=== PATIENT | male | born 1935 | race Caucasian/White ===

== ENCOUNTER 2017-04-28 18:28 | Inpatient (IN) | payer OTHER, MEDICARE ==
[~2017-04-28] VITALS: Ht 172.7 cm; Wt 72.5 kg
[~2017-04-28 18:28] MED LIST: ASPI81 CHEW; CLOP75 PO; GLUCTAB PO; GLYB1TAB51 PO; LISI-360 PO; METO25 PO; PRAV40 PO
[2017-04-28 18:49] VITALS: BP 192/80; PULSE 81; RESP 17
[2017-04-28] MEDS ORDERED: LISI-519 PO (19:06)
[2017-04-28] MEDS ORDERED: METF1000 PO (19:06)
[2017-04-28] MEDS ORDERED: PRAV40TA2 PO (19:06)
[2017-04-28] MEDS ORDERED: ASPI-516 CHEW (19:06)
[2017-04-28] MEDS ORDERED: METO25TA3 PO (19:06)
[2017-04-28] MEDS ORDERED: GLYB5TAB3 PO (19:06)
[2017-04-28] MEDS ORDERED: ONDANSETRON HCL 4 MG/2 ML VIAL IVP ONE (19:15)
[2017-04-28] MEDS ORDERED: MORPHINE SULFATE 4 MG/ML INJ IV PUSH ONE (19:15)
[2017-04-28] MEDS ORDERED: SODIUM CHLORIDE 0.9% FLUSH 10 ML FLUSH IVF PRN (19:15)
--- NOTE | 2017-04-28 19:45 | PD ---
HPI Chief Complaint: Fall Time Seen by Provider: 19:01 Travel History International Travel<30 days: No Contact w/Intl Traveler<30days: No Traveled to known affect area: No History of Present Illness HPI 81-year-old male arrives by EMS. He fell approximately 4 feet from a ladder. Positive LOC. Pain in the right forehead and temporal fossa reported as well as in the region of the right femur. He believes a friend fell on top of him. Pain is reported to be 10/10. Onset sudden. No chest pain or shortness of breath. Patient believes his tetanus is up-to-date. Patient landed on the concrete. Right side of the body struck the ground first. PFSH Past Medical History Arthritis: Yes Asthma: No Anxiety: No Depression: No Heart Rhythm Problems: No Cancer: Yes (colon, prostate) Cardiovascular Problems: Yes High Cholesterol: Yes Chemotherapy: No Chest Pain: No Congestive Heart Failure: No COPD: No Cerebrovascular Accident: No Diabetes: Yes Patient Takes Glucophage: Yes Diminished Hearing: No Endocrine: Yes GERD: No Genitourinary: No Hiatal Hernia: No Hypertension: Yes Immune Disorder: No Kidney Stones: No Musculoskeletal: No Neurologic: No Psychiatric: No Reproductive: No Respiratory: No Immunizations Current: Yes Migraines: No Radiation Therapy: Yes Renal Failure: No Seizures: No Sickle Cell Disease: No Sleep Apnea: No Thyroid Disease: No Ulcer: No Tetanus Vaccination: Unknown ?: Not Past Surgical History Abdominal Surgery: Yes (cholecystectomy , colectomy) AICD: No Arteriovenous Shunt: No Cardiac Surgery: No Cholecystectomy: Yes Ear Surgery: No Endocrine Surgery: No Eye Surgery: No Genitourinary Surgery: No Gynecologic Surgery: No Insulin Pump: No Joint Replacement: No Oral Surgery: No Pacemaker: No Thoracic Surgery: No Other Surgery: Yes (colectomy, cholecysectomy, ) Family History Family Myocardial Infarction: Yes (MOTHER) Social History Alcohol Use: Yes (OCC) Tobacco Use: No Substance Use: No Allergies-Medications (Allergen,Severity, Reaction): Coded Allergies: amlodipine (Unverified Allergy, Intermediate, Cramping, 04/28/17) atorvastatin (Unverified Allergy, Intermediate, Cramping, 04/28/17) pravastatin (Unverified Allergy, Intermediate, Cramping, 04/28/17) simvastatin (Unverified Allergy, Intermediate, Cramping, 04/28/17) Reported Meds & Prescriptions Reported Meds & Active Scripts Active Reported Aspirin 81 Mg Chew 81 Mg CHEW DAILY Pravastatin 40 Mg Tab 40 Mg PO DAILY Metoprolol Tartrate 25 Mg Tab 25 Mg PO BID Lisinopril 5 Mg Tab 5 Mg PO DAILY Glyburide 5 Mg Tab 10 Mg PO BID Take with meals at the same time each day Metformin (Metformin HCl) 1,000 Mg Tab 1,000 Mg PO BIDPC Review of Systems Except as stated in HPI: all other systems reviewed are Neg General / Constitutional: No: Fever Physical Exam Narrative GENERAL: 81-year-old male well-nourished well-developed mild to moderate distress Vital Signs Date Time Temp Pulse Resp B/P (MAP) Pulse Ox O2 Delivery O2 Flow Rate FiO2 04/28/17 18:49 81 17 192/80 (117) SKIN: Warm and dry. HEAD: Atraumatic. Normocephalic. Along the right forehead there is a puncture wound abrasion approximately 1 cm long by 2 cm wide with some abraded skin extending further laterally. EYES: Pupils equal and round. No scleral icterus. No injection or drainage. ENT: No nasal bleeding or discharge. Mucous membranes pink and moist. NECK: Trachea midline. No JVD. CARDIOVASCULAR: Regular rate and rhythm. RESPIRATORY: No accessory muscle use. Clear to auscultation. Breath sounds equal bilaterally. GASTROINTESTINAL: Abdomen soft, non-tender, nondistended. Hepatic and splenic margins not palpable. MUSCULOSKELETAL: Extremities without clubbing, cyanosis, or edema. No obvious deformities. Tenderness to palpation overlying the midshaft femur. NEUROLOGICAL: Awake and alert. No obvious cranial nerve deficits. Motor grossly within normal limits. Five out of 5 muscle strength in the arms and legs. Normal speech. PSYCHIATRIC: Appropriate mood and affect; insight and judgment normal. Data Data Last Documented VS Vital Signs Date Time Temp Pulse Resp B/P (MAP) Pulse Ox O2 Delivery O2 Flow Rate FiO2 04/28/17 19:55 98.0 86 16 164/76 (105) 99 Room Air Orders Orders Electrocardiogram (04/28/17 19:14) Complete Blood Count With Diff (04/28/17 19:14) Comprehensive Metabolic Panel (04/28/17 19:14) Femur (Ap & Lat/2vws) (04/28/17 19:14) Iv Access Insert/Monitor (04/28/17 19:14) Oximetry (04/28/17 19:14) Ecg Monitoring (04/28/17 19:14) Morphine Inj (Morphine Inj) (04/28/17 19:15) Ondansetron Inj (Zofran Inj) (04/28/17 19:15) Sodium Chloride 0.9% Flush (Ns Flush) (04/28/17 19:15) Ct Brain W/O Iv Contrast(Rout) (04/28/17 19:14) Pelvis, Ap Only (Routine) (04/28/17 19:14) Lidocaine 2% Inj (Xylocaine 2% Inj) (04/28/17 20:15) Admit Order (Ed Use Only) (04/28/17 ) Vital Signs (Adult) Q4H (04/28/17 21:13) Activity Bed Rest (04/28/17 21:13) Labs Laboratory Tests Test 04/28/17 19:30 White Blood Count 8.9 TH/MM3 Red Blood Count 3.79 MIL/MM3 Hemoglobin 12.1 GM/DL Hematocrit 36.3 % Mean Corpuscular Volume 95.9 FL Mean Corpuscular Hemoglobin 32.1 PG Mean Corpuscular Hemoglobin Concent 33.5 % Red Cell Distribution Width 12.8 % Platelet Count 184 TH/MM3 Mean Platelet Volume 9.6 FL Neutrophils (%) (Auto) 75.0 % Lymphocytes (%) (Auto) 14.1 % Monocytes (%) (Auto) 6.8 % Eosinophils (%) (Auto) 3.7 % Basophils (%) (Auto) 0.4 % Neutrophils # (Auto) 6.6 TH/MM3 Lymphocytes # (Auto) 1.2 TH/MM3 Monocytes # (Auto) 0.6 TH/MM3 Eosinophils # (Auto) 0.3 TH/MM3 Basophils # (Auto) 0.0 TH/MM3 CBC Comment DIFF FINAL Differential Comment Blood Urea Nitrogen 34 MG/DL Creatinine 1.52 MG/DL Random Glucose 98 MG/DL Total Protein 7.3 GM/DL Albumin 4.0 GM/DL Calcium Level 8.7 MG/DL Alkaline Phosphatase 95 U/L Aspartate Amino Transf (AST/SGOT) 31 U/L Alanine Aminotransferase (ALT/SGPT) 43 U/L Total Bilirubin 0.2 MG/DL Sodium Level 138 MEQ/L Potassium Level 4.8 MEQ/L Chloride Level 105 MEQ/L Carbon Dioxide Level 25.5 MEQ/L Anion Gap 8 MEQ/L Estimat Glomerular Filtration Rate 44 ML/MIN MDM Medical Decision Making Medical Screen Exam Complete: Yes Emergency Medical Condition: Yes Medical Record Reviewed: Yes Differential Diagnosis Intracranial hemorrhage, laceration, pelvis fracture, femur fracture Narrative Course CBC & BMP Diagram 04/28/17 19:30 Total Protein 7.3, Albumin 4.0, Calcium Level 8.7, Alkaline Phosphatase 95, Aspartate Amino Transf (AST/SGOT) 31, Alanine Aminotransferase (ALT/SGPT) 43, Total Bilirubin 0.2 Laceration repaired by mid-level provider The patient is subcapital femoral neck fracture and will be admitted for operative repair. Discussed with Dr Mallory D/w Dr Phan who requests NPO p MN Diagnosis Primary Impression: Hip fracture Qualified Codes: S72.001A - Fracture of unspecified part of neck of right femur, initial encounter for closed fracture Additional Impressions: Fall Qualified Codes: W19.XXXA - Unspecified fall, initial encounter Laceration of scalp Qualified Codes: S01.01XA - Laceration without foreign body of scalp, initial encounter Admitting Information Admitting Physician Requests: Admit Hunter Rdz MD Apr 28, 2017 19:44
[2017-04-28 19:55] VITALS: BP 164/76; PULSE 86; RESP 16; TEMP 98; O2SAT 99
--- NOTE | 2017-04-28 20:07 | RADRPT ---
EXAM DATE/TIME: 04/28/2017 19:29 [facility] COMPARISON: FEMUR RIGHT (AP & LAT/2VWS), April 28, 2017, 19:30. INDICATIONS : Right hip pain. Patient fell off a ladder, approximately 2 feet. MEDICAL HISTORY : None. SURGICAL HISTORY : None. ENCOUNTER: Initial ACUITY: 1 day PAIN SCORE: 8/10 LOCATION: Right hip. FINDINGS: A single frontal view of the pelvis demonstrates no evidence of fracture. The bony pelvic ring is in tact. Bony mineralization is normal. The soft tissues are intact. CONCLUSION: Intact pelvis. Right femur x-ray to follow. Alec Mazariegos MD on April 28, 2017 at 20:05 Board Certified Radiologist. This report was verified electronically.
--- NOTE | 2017-04-28 20:09 | RADRPT ---
EXAM DATE/TIME: 04/28/2017 19:30 [facility] COMPARISON: No previous studies available for comparison. INDICATIONS : Right hip pain. Patient fell off a ladder, approximately 2 feet. MEDICAL HISTORY : None. SURGICAL HISTORY : None. ENCOUNTER: Initial ACUITY: 1 day PAIN SCORE: 8/10 LOCATION: Right hip. FINDINGS: There is a mildly impacted subcapital fracture of the right femur. The rest of the femur is intact. N o subluxation of the hip. No intra-articular fracture demonstrated. CONCLUSION: Acute subcapital fracture of the right femur with mild impaction. Alec Mazariegos MD on April 28, 2017 at 20:05 Board Certified Radiologist. This report was verified electronically.
[2017-04-28 20:12] LABS: ALT (GPT) 43 U/L (12-78)
[2017-04-28 20:14] LABS: ALKALINE PHOSPHATASE 95 U/L (45-117); TOTAL BILIRUBIN ADULT 0.2 MG/DL (0.2-1.0); TOTAL PROTEIN 7.3 GM/DL (6.4-8.2)
[2017-04-28] MEDS ORDERED: LIDOCAINE HCL 2% 50 ML VIAL NERV BLOCK ONE (20:15)
[2017-04-28 20:16] LABS: AST (GOT) 31 U/L (15-37); BICARBONATE 25.5 MEQ/L (21.0-32.0); BLOOD UREA NITROGEN 34 MG/DL (7-18); CALCIUM 8.7 MG/DL (8.5-10.1); CHLORIDE 105 MEQ/L (98-107); CREATININE 1.52 MG/DL (0.60-1.30); GLOMERULAR FILTRATION RATE 44 ML/MIN (>89); GLUCOSE,RANDOM 98 MG/DL (74-106); SODIUM (NA) 138 MEQ/L (136-145)
--- NOTE | 2017-04-28 20:16 | PD ---
Physical Exam Date Seen by Provider: Apr 28, 2017 Narrative I was asked to repair a laceration to the right forehead. LACERATION LOCATION: right brow, starrate shaped LENGTH: [id number] NUMBER OF STITCHES/MARLO: 6 5-0 prolene, 3 6-0 prolene REPAIR: The area of the laceration was prepped with Betadine and sterilely draped. The laceration was infiltrated with 2% lidocaine. The wound was copiously irrigated and explored without evidence of foreign body, tendon injury or neurovascular injury. The wound was closed using prolene. This was a single layer repair. A sterile dressing was applied. The patient was advised to keep the dressing clean and dry. Patient tolerated the procedure well. Data Data Last Documented VS Vital Signs Date Time Temp Pulse Resp B/P (MAP) Pulse Ox O2 Delivery O2 Flow Rate FiO2 04/28/17 19:55 98.0 86 16 164/76 (105) 99 Room Air Orders Orders Electrocardiogram (04/28/17 19:14) Complete Blood Count With Diff (04/28/17 19:14) Comprehensive Metabolic Panel (04/28/17 19:14) Femur (Ap & Lat/2vws) (04/28/17 19:14) Iv Access Insert/Monitor (04/28/17 19:14) Oximetry (04/28/17 19:14) Ecg Monitoring (04/28/17 19:14) Morphine Inj (Morphine Inj) (04/28/17 19:15) Ondansetron Inj (Zofran Inj) (04/28/17 19:15) Sodium Chloride 0.9% Flush (Ns Flush) (04/28/17 19:15) Ct Brain W/O Iv Contrast(Rout) (04/28/17 19:14) Pelvis, Ap Only (Routine) (04/28/17 19:14) Lidocaine 2% Inj (Xylocaine 2% Inj) (04/28/17 20:15) Admit Order (Ed Use Only) (04/28/17 ) Vital Signs (Adult) Q4H (04/28/17 21:13) Activity Bed Rest (04/28/17 21:13) Labs Laboratory Tests Test 04/28/17 19:30 White Blood Count 8.9 TH/MM3 Red Blood Count 3.79 MIL/MM3 Hemoglobin 12.1 GM/DL Hematocrit 36.3 % Mean Corpuscular Volume 95.9 FL Mean Corpuscular Hemoglobin 32.1 PG Mean Corpuscular Hemoglobin Concent 33.5 % Red Cell Distribution Width 12.8 % Platelet Count 184 TH/MM3 Mean Platelet Volume 9.6 FL Neutrophils (%) (Auto) 75.0 % Lymphocytes (%) (Auto) 14.1 % Monocytes (%) (Auto) 6.8 % Eosinophils (%) (Auto) 3.7 % Basophils (%) (Auto) 0.4 % Neutrophils # (Auto) 6.6 TH/MM3 Lymphocytes # (Auto) 1.2 TH/MM3 Monocytes # (Auto) 0.6 TH/MM3 Eosinophils # (Auto) 0.3 TH/MM3 Basophils # (Auto) 0.0 TH/MM3 CBC Comment DIFF FINAL Differential Comment Blood Urea Nitrogen 34 MG/DL Creatinine 1.52 MG/DL Random Glucose 98 MG/DL Total Protein 7.3 GM/DL Albumin 4.0 GM/DL Calcium Level 8.7 MG/DL Alkaline Phosphatase 95 U/L Aspartate Amino Transf (AST/SGOT) 31 U/L Alanine Aminotransferase (ALT/SGPT) 43 U/L Total Bilirubin 0.2 MG/DL Sodium Level 138 MEQ/L Potassium Level 4.8 MEQ/L Chloride Level 105 MEQ/L Carbon Dioxide Level 25.5 MEQ/L Anion Gap 8 MEQ/L Estimat Glomerular Filtration Rate 44 ML/MIN MDM Supervised Visit with SIDRA: Caroline Hinkle Apr 28, 2017 20:16
--- NOTE | 2017-04-28 20:28 | RADRPT ---
EXAM DATE/TIME: 04/28/2017 19:43 [facility] COMPARISON: No previous studies available for comparison. INDICATIONS : Fell off ladder RADIATION DOSE: 37.12 CTDIvol (mGy) MEDICAL HISTORY : Cardiovascular disease. SURGICAL HISTORY : Cholecystectomy. Colectomy ENCOUNTER: Initial ACUITY: 1 day PAIN SCALE: 10/10 LOCATION: cranial TECHNIQUE: Multiple contiguous axial images were obtained of the head. Using automated exposure control and adj ustment of the mA and/or kV according to patient size, radiation dose was kept as low as reasonably a chievable to obtain optimal diagnostic quality images. DICOM format image data is available electro nically for review and comparison. FINDINGS: CEREBRUM: The ventricles are normal for age. No evidence of midline shift, mass lesion, hemorrhage or acute in farction. No extra-axial fluid collections are seen. POSTERIOR FOSSA: The cerebellum and brainstem are intact. The 4th ventricle is midline. The cerebellopontine angle i s unremarkable. EXTRACRANIAL: No perceptible fracture but there is blood in the visualized right ethmoid and right sphenoid air nicholas ls. If there is clinical concern for facial fracture, dedicated face CT recommended. SKULL: The calvaria is intact. No evidence of skull fracture. CONCLUSION: No bleed or other acute intracranial abnormality. Blood in the paranasal sinuses. Please see above. Alec Mazariegos MD on April 28, 2017 at 20:25 Board Certified Radiologist. This report was verified electronically.
[2017-04-28 20:33] LABS: AUTOMATED NEUTROPHIL # 6.6 TH/MM3 (1.8-7.7); BASOPHIL % 0.4 % (0.0-2.0); EOSINOPHIL # 0.3 TH/MM3 (0-0.4); EOSINOPHIL % 3.7 % (0.0-4.0); HEMATOCRIT 36.3 % (39.0-51.0); HEMOGLOBIN 12.1 GM/DL (13.0-17.0); LYMPH % 14.1 % (9.0-44.0); LYMPHOCYTE # 1.2 TH/MM3 (1.0-4.8); MEAN CELL VOLUME 95.9 FL (80.0-100.0); MEAN CORPUSCULAR HEMOGLOBIN 32.1 PG (27.0-34.0); MEAN CORPUSCULAR HGB CONC 33.5 % (32.0-36.0); MEAN PLATELET VOLUME 9.6 FL (7.0-11.0); MONO % 6.8 % (0.0-8.0); MONOCYTE # 0.6 TH/MM3 (0-0.9); PLATELET COUNT 184 TH/MM3 (150-450); RED BLOOD COUNT 3.79 MIL/MM3 (4.50-5.90); RED CELL DISTRIBUTION WIDTH 12.8 % (11.6-17.2); WHITE BLOOD COUNT 8.9 TH/MM3 (4.0-11.0)
[2017-04-28] MEDS ORDERED: SODIUM CHLORIDE 0.9% FLUSH 10 ML FLUSH IV FLUSH PRN (21:15)
[2017-04-28] MEDS ORDERED: NALOXONE HCL 0.4 MG/ML AMP IV PUSH PRN (21:15)
[2017-04-28] MEDS ORDERED: DEXTROSE 50% IN WATER 50 ML VIAL(D50) IV PUSH PRN (21:30)
[2017-04-28] MEDS ORDERED: GLUCAGON 1 MG/ML VIAL OTHER PRN (21:30)
[2017-04-28] MEDS ORDERED: MORPHINE SULFATE 2 MG/ML INJ IV PUSH PRN (21:30)
[2017-04-28] MEDS: DEXT 5%-NACL 0.45% 1000 ML INJ 1,000 ML IV SCH (21:35)
[2017-04-28 23:01] VITALS: BP 161/76; PULSE 95; RESP 18; O2SAT 98
[2017-04-28] MEDS ORDERED: HYDROmorphone HCL PF 2 MG/ML VIAL IV PUSH ONE (23:15)
[2017-04-29] VITALS (7 sets, daily range): BP systolic 125–168; BP diastolic 62–82; PULSE 65–104; RESP 17–18; TEMP 95.8–96.7; O2SAT 91–97
[2017-04-29] MEDS ORDERED: METOPROLOL TARTRATE 25 MG TAB PO PRN (02:00)
[2017-04-29] MEDS ORDERED: LACTATED RINGER'S 1000 ML IV PRN (02:00)
[2017-04-29] MEDS ORDERED: SODIUM CHLORID 0.9% 500 ML IV PRN (02:00)
[2017-04-29] MEDS ORDERED: CHLORHEXIDINE GLUCONATE 2 % 1 PACK (2 CLOTHS) TOPICAL PRN (02:00)
[2017-04-29] MEDS ORDERED: INSULIN HUMAN REGULAR 1,000 UNITS/10 ML VIAL SQ PRN (02:00)
[2017-04-29] MEDS ORDERED: POVIDONE IODINE 5% (ANTISEPSIS KIT) 4 APPLICATIONS EACH NARE PRN (02:00)
[2017-04-29 04:03] LABS: HEMATOCRIT 35.6 % (39.0-51.0); HEMOGLOBIN 11.9 GM/DL (13.0-17.0); MEAN CELL VOLUME 95.8 FL (80.0-100.0); MEAN CORPUSCULAR HEMOGLOBIN 31.9 PG (27.0-34.0); MEAN CORPUSCULAR HGB CONC 33.3 % (32.0-36.0); MEAN PLATELET VOLUME 9.1 FL (7.0-11.0); PLATELET COUNT 175 TH/MM3 (150-450); RED BLOOD COUNT 3.71 MIL/MM3 (4.50-5.90); RED CELL DISTRIBUTION WIDTH 12.6 % (11.6-17.2); WHITE BLOOD COUNT 14.5 TH/MM3 (4.0-11.0)
[2017-04-29 04:04] LABS: AUTOMATED NEUTROPHIL # 13.2 TH/MM3 (1.8-7.7); BASOPHIL % 0.2 % (0.0-2.0); LYMPH % 3.9 % (9.0-44.0); LYMPHOCYTE # 0.6 TH/MM3 (1.0-4.8); MONOCYTE # 0.7 TH/MM3 (0-0.9); NEUT % 90.9 % (16.0-70.0)
[2017-04-29 04:20] LABS: INTERNATIONAL NORMALIZED RATIO 1.1 RATIO; PROTHROMBIN TIME - PATIENT 10.7 SEC (9.8-11.6)
[2017-04-29 04:33] LABS: BICARBONATE 24.6 MEQ/L (21.0-32.0); CALCIUM 8.5 MG/DL (8.5-10.1); CREATININE 1.48 MG/DL (0.60-1.30)
--- NOTE | 2017-04-29 04:38 | HHI.HP ---
[facility] Ad[facility] Diagnosis Fall; R Hip Fracture; Scalp Laceration Diagnoses: Travel History International Travel<30 Days: No Contact w/Intl Traveler <30 Da: No Traveled to Known Affected Are: No History of Present Illness History from patient, ER physician communication, and review of medical records. Patient reported that he was in the garage helping his friend fix things and the friend had tripped and fell onto him. He stated that this may to fall face forward. He hit his head at the forehead. He thinks he also landed on the side. He denies taking any blood thinners apart from aspirin 81 mg at home. Patient states that the fall is quite severe that he thinks he did pass out. However denies any premonitory symptoms prior to this event. He states this was simply an accidental fall. In the emergency room, patient had repair of his right forehead laceration. On review of systems, patient denies any chest pain/palpitations/shortness of breath/syncopal episodes p previously. He stated that he only passed out this time because of the fall. Denies any recent fever/cough/nausea/vomiting/diarrhea/black stools or red stools/blood in his urine. Denies any urinary burning or pain on urination. Review of Systems Except as stated in HPI: all other systems reviewed are Neg Past Family Social History Past Medical History htn dm cad s/p stents x 2- last stent was about 1 yr ago- Dr Mccracken rheumatic fever but no heart dx due to it prostate ca Past Surgical History prostatectomy cholecystectomy one foot of colon removed for precancerous polyps coronary angiogram x stent cataract sx Allergies: Coded Allergies: amlodipine (Unverified Allergy, Intermediate, Cramping, 04/28/17) atorvastatin (Unverified Allergy, Intermediate, Cramping, 04/28/17) pravastatin (Unverified Allergy, Intermediate, Cramping, 04/28/17) simvastatin (Unverified Allergy, Intermediate, Cramping, 04/28/17) Family History sister- cva, heart failure Social History used to smoke for 55yrs , quit mar 2003 no etoh abuse no drugs lives by himself , still driving Physical Exam Vital Signs Vital Signs Date Time Temp Pulse Resp B/P (MAP) Pulse Ox O2 Delivery O2 Flow Rate FiO2 04/29/17 04:00 96.0 89 18 154/81 (105) 94 04/29/17 00:34 100 04/29/17 00:06 92 Nasal Cannula 2.00 04/29/17 00:00 95.8 98 18 168/82 (110) 91 04/28/17 23:58 04/28/17 23:01 95 18 161/76 (104) 98 Nasal Cannula 2.00 04/28/17 19:55 98.0 86 16 164/76 (105) 99 Room Air 04/28/17 18:49 81 17 192/80 (117) Physical Exam GENERAL: This is a well-nourished, well-developed patient, in no apparent distress. SKIN: No rashes, ecchymoses or lesions. Cool and dry. Right forehead laceration repaired HEAD: Atraumatic. Normocephalic. No temporal or scalp tenderness. EYES: Pupils equal round and reactive. Extraocular motions intact. No scleral icterus. No injection or drainage. ENT: Nose without bleeding, purulent drainage or septal hematoma. Airway patent. NECK: Trachea midline. No JVD or lymphadenopathy. Supple, nontender, no meningeal signs. CARDIOVASCULAR: Regular rate and rhythm without murmurs, gallops, or rubs. RESPIRATORY: Clear to auscultation. Breath sounds equal bilaterally. No wheezes , rales, or rhonchi. GASTROINTESTINAL: Abdomen soft, non-tender, nondistended. No hepato-splenomegaly , or palpable masses. No guarding. MUSCULOSKELETAL: Extremities without clubbing, cyanosis, or edemaNo calf tenderness. NEUROLOGICAL: Awake and alerMotor and sensory grossly within normal limits. Normal speech. Laboratory Laboratory Tests Test 04/28/17 19:30 04/29/17 03:29 White Blood Count 8.9 14.5 Red Blood Count 3.79 3.71 Hemoglobin 12.1 11.9 Hematocrit 36.3 35.6 Mean Corpuscular Volume 95.9 95.8 Mean Corpuscular Hemoglobin 32.1 31.9 Mean Corpuscular Hemoglobin Concent 33.5 33.3 Red Cell Distribution Width 12.8 12.6 Platelet Count 184 175 Mean Platelet Volume 9.6 9.1 Neutrophils (%) (Auto) 75.0 90.9 Lymphocytes (%) (Auto) 14.1 3.9 Monocytes (%) (Auto) 6.8 5.0 Eosinophils (%) (Auto) 3.7 0.0 Basophils (%) (Auto) 0.4 0.2 Neutrophils # (Auto) 6.6 13.2 Lymphocytes # (Auto) 1.2 0.6 Monocytes # (Auto) 0.6 0.7 Eosinophils # (Auto) 0.3 0.0 Basophils # (Auto) 0.0 0.0 CBC Comment DIFF FINAL DIFF FINAL Differential Comment Blood Urea Nitrogen 34 Creatinine 1.52 Random Glucose 98 Total Protein 7.3 Albumin 4.0 Calcium Level 8.7 Alkaline Phosphatase 95 Aspartate Amino Transf (AST/SGOT) 31 Alanine Aminotransferase (ALT/SGPT) 43 Total Bilirubin 0.2 Sodium Level 138 Potassium Level 4.8 Chloride Level 105 Carbon Dioxide Level 25.5 Anion Gap 8 Estimat Glomerular Filtration Rate 44 Prothrombin Time 10.7 Prothromb Time International Ratio 1.1 Activated Partial Thromboplast Time 25.9 Result Diagram: 04/29/17 0329 04/28/171929 Imaging Last 48 hours Impressions Chest X-Ray 04/29/17 0000 Signed Impressions: Service Date/Time: Saturday, April 29, 2017 04:49 - CONCLUSION: No acute disease. Luke Alonso Jr., MD Pelvis X-Ray 04/28/171913 Signed Impressions: Service Date/Time: Friday, April 28, 2017 19:29 - CONCLUSION: Intact pelvis. Right femur x-ray to follow. Alec Mazariegos MD Head CT 04/28/171913 Signed Impressions: Service Date/Time: Friday, April 28, 2017 19:43 - CONCLUSION: No bleed or other acute intracranial abnormality. Blood in the paranasal sinuses. Please see above. Alec Mazariegos MD Femur X-Ray 04/28/171913 Signed Impressions: Service Date/Time: Friday, April 28, 2017 19:30 - CONCLUSION: Acute subcapital fracture of the right femur with mild impaction. MD Rula Leroy VTE Risk Assessment Caprini VTE Risk Assessment: Mod/High Risk (score >= 2) Caprini Risk Assessment Model Point Value = 1 Point Value = 2 Point Value = 3 Point Value = 5 Age 41-60 Minor surgery BMI > 25 kg/m2 Swollen legs Varicose veins or History of unexplained or recurrent spontaneous Oral contraceptives or hormone replacement Sepsis (< 1 month) Serious lung disease, including pneumonia (< 1 month) Abnormal pulmonary function Acute myocardial infarction Congestive heart failure (< 1 month) History of inflammatory bowel disease Medical patient at bed rest Age 61-74 Arthroscopic surgery Major open surgery (> 45 min) Laparoscopic surgery (> 45 min) Malignancy Confined to bed (> 72 hours) Immobilizing plaster cast Central venous access Age >= 75 History of VTE Family history of VTE Factor V Leiden Prothrombin [id number] Lupus anticoagulant Anticardiolipin antibodies Elevated serum homocysteine Heparin-induced thrombocytopenia Other congenital or acquired thrombophilia Stroke (< 1 month) Elective arthroplasty Hip, pelvis, or leg fracture Acute spinal cord injury (< 1 month) Prophylaxis Regimen Total Risk Factor Score Risk Level Prophylaxis Regimen 0-1 Low Early ambulation 2 Moderate Order ONE of the following: *Sequential Compression Device (SCD) *Heparin 5000 units SQ BID 3-4 Higher Order ONE of the following medications: *Heparin 5000 units SQ TID *Enoxaparin/Lovenox 40 mg SQ daily (WT < 150 kg, CrCl > 30 mL/min) *Enoxaparin/Lovenox 30 mg SQ daily (WT < 150 kg, CrCl > 10-29 mL/min) *Enoxaparin/Lovenox 30 mg SQ BID (WT < 150 kg, CrCl > 30 mL/min) AND/OR *Sequential Compression Device (SCD) 5 or more Highest Order ONE of the following medications: *Heparin 5000 units SQ TID (Preferred with Epidurals) *Enoxaparin/Lovenox 40 mg SQ daily (WT < 150 kg, CrCl > 30 mL/min) *Enoxaparin/Lovenox 30 mg SQ daily (WT < 150 kg, CrCl > 10-29 mL/min) *Enoxaparin/Lovenox 30 mg SQ BID (WT < 150 kg, CrCl > 30 mL/min) AND *Sequential Compression Device (SCD) Assessment and Plan Assessment and Plan Impression: Fall Acute subcapital neck fracture right. Leukocytosis with left shift htn dm cad s/p stents x 2- last stent was about 1 yr ago- Dr Mccracken rheumatic fever but no heart dx due to it prostate ca Plan: Orthopedics were consulted. Nothing by mouth. IV hydration. Pain control. D5 half-normal saline at 42 cc per hour if the patient is to be nothing by mouth for a long time and not eating. Chest x-ray. Insert Garcia for acute urinary retention secondary to fracture. Send UA leukocytosis. Suspect tactile fever. Patient however denies any history suggestive of acute infection. We will give perioperative prophylactic antibiotics with cefazolin Resume other home meds. DVT prophylaxis to start postoperatively chemical prophylaxis. Currently on SCD Discussed Condition With Patient, ER physician, nursing staff Physician Certification 2 Midnight Certification Type: Admission for Inpatient Services Order for Inpatient Services The services are ordered in accordance with Medicare regulations or non- Medicare payer requirements, as applicable. In the case of services not specified as inpatient-only, they are appropriately provided as inpatient services in accordance with the 2-midnight benchmark. Estimated LOS (days): 3 days is the estimated time the patient will need to remain in the hospital, assuming treatment plan goals are met and no additional complications. Post-Hospital Plan: Not yet determined Nely Mallory MD Apr 29, 2017 04:38
[2017-04-29] MEDS: ASPIRIN 81 MG CHEW TAB CHEW SCH (04:48)
[2017-04-29 05:49] LABS: BILIRUBIN, URINE NEG (NEG); BLOOD, URINE NEG (NEG); GLUCOSE,URINE 1000 mg/dL (NEG); KETONE, URINE 40 mg/dL (NEG); MUCUS URINE FEW /lpf (OCC); NITRITE,URINE NEG (NEG); URINE COLOR YELLOW (YELLW/STRAW); URINE LEUKOCYTE ESTERASE NEG (NEG)
--- NOTE | 2017-04-29 05:56 | RADRPT ---
EXAM DATE/TIME: 04/29/2017 04:49 [facility] COMPARISON: CHEST SINGLE AP, April 05, 2014, 12:20. INDICATIONS : Evaluate for pneumonia pneumothorax, and communicable disease. MEDICAL HISTORY : None. SURGICAL HISTORY : None. ENCOUNTER: Subsequent ACUITY: 2 days PAIN SCORE: 0/10 LOCATION: Bilateral chest FINDINGS: A single view of the chest demonstrates the lungs to be symmetrically aerated without evidence of mas s, infiltrate or effusion. The cardiomediastinal contours are unremarkable. Osseous structures are intact. CONCLUSION: No acute disease. Luke Alonso Jr., MD on April 29, 2017 at 5:54 Board Certified Radiologist. This report was verified electronically.
--- NOTE | 2017-04-29 06:51 | PD.ORT.PN ---
Subjective Subjective Remarks Fall from ladder at home Objective Vitals Vital Signs Date Time Temp Pulse Resp B/P (MAP) Pulse Ox O2 Delivery O2 Flow Rate FiO2 04/29/17 04:00 104 04/29/17 04:00 96.0 89 18 154/81 (105) 94 04/29/17 00:34 100 04/29/17 00:06 92 Nasal Cannula 2.00 04/29/17 00:00 95.8 98 18 168/82 (110) 91 04/28/17 23:58 04/28/17 23:01 95 18 161/76 (104) 98 Nasal Cannula 2.00 04/28/17 19:55 98.0 86 16 164/76 (105) 99 Room Air 04/28/17 18:49 81 17 192/80 (117) I/O 04/28/17 04/28/17 04/28/17 04/29/17 04/29/17 04/29/17 07:00 15:00 23:00 07:00 15:00 23:00 Intake Total 0 ml Output Total 950 ml Balance -950 ml Intake Oral 0 ml Output Urine Total 950 ml Bladder Scan Volume Amount 780 ml # Voids 1 # Bowel Movements 0 Result Diagram: 04/29/17 0329 04/29/17 0329 Other Results Laboratory Tests Test 04/29/17 03:29 Prothromb Time International Ratio 1.1 RATIO Prothrombin Time 10.7 SEC (9.8-11.6) Imaging Last 24 hours Impressions Chest X-Ray 04/29/17 0000 Signed Impressions: Service Date/Time: Saturday, April 29, 2017 04:49 - CONCLUSION: No acute disease. Luke Alonso Jr., MD Pelvis X-Ray 04/28/171913 Signed Impressions: Service Date/Time: Friday, April 28, 2017 19:29 - CONCLUSION: Intact pelvis. Right femur x-ray to follow. Alec Mazariegos MD Head CT 04/28/171913 Signed Impressions: Service Date/Time: Friday, April 28, 2017 19:43 - CONCLUSION: No bleed or other acute intracranial abnormality. Blood in the paranasal sinuses. Please see above. Alec Mazariegos MD Femur X-Ray 04/28/171913 Signed Impressions: Service Date/Time: Friday, April 28, 2017 19:30 - CONCLUSION: Acute subcapital fracture of the right femur with mild impaction. Alec Mazariegos MD Objective Remarks Bilateral upper extremities: Full range of motion neurovascularly intact Left lower extremity: Full range of motion and neurovascularly intact Right lower extremity: Pain to palpation of hip and movement of hip. No pain with knee or ankle range of motion. Distally intact sensation good capillary refills. He has active dorsiflexion plantar flexion of foot Assessment & Plan Assessment and Plan Right subcapital fracture minimally displaced Nothing by mouth Surgery this morning for percutaneous screw fixation of right femoral neck fracture versus right hip hemiarthroplasty. Is explained to the patient that we will attempt open reduction internal fixation with percutaneous pins if the fracture is continue to maintain position. If upon x-raying in the operating room, the fracture has displaced, we will proceed with right hip hemiarthroplasty. Sign consents Jermain Mejía Jr. Apr 29, 2017 06:51
[2017-04-29] MEDS ORDERED: VITA500012 PO (06:54)
[2017-04-29] MEDS ORDERED: CALCTAB19 PO (06:54)
[2017-04-29] MEDS ORDERED: HYDR-3580 PO (06:54)
[2017-04-29] MEDS ORDERED: WALKER WHEELS/F1 MIS (06:54)
[2017-04-29] MEDS ORDERED: XARE10TA PO (06:58)
--- NOTE | 2017-04-29 07:00 | MB ---
cc: Kurt Thakkar MD DATE OF CONSULT: 04/29/2017 REASON FOR CONSULTATION: Right femoral neck fracture. CONSULTING PHYSICIAN: Dr. Mallory HISTORY: Kyler is a 81-year-old male. He was in his garage. He was on a ladder putting up a shelf. He lost his balance and fell. He hit his head. He landed on his right side. He had immediate right hip pain. He was unable to stand or ambulate. He states that he may have had brief loss of consciousness. He is currently awake and alert on the orthopedic floor. He complains of right hip pain. Pain is worse is movement. Pain is improved with rest. PAST MEDICAL HISTORY: Illnesses: Diabetes, hypertension, coronary artery disease and a history of rheumatic fever. Surgeries: Prostatectomy, cholecystectomy, colon resection, cataract surgery. ALLERGIES: AMLODIPINE, ATORVASTATIN, PRAVASTATIN AND SIMVASTATIN. MEDICATIONS: Please see EMR for a complete list of the inpatient medications. This was reviewed. Medications include aspirin, metoprolol, lisinopril, Glyburide and metformin. SOCIAL HISTORY: Patient denies alcohol or drug use. He lives at home. He quit smoking approximately 14 years ago. FAMILY HISTORY: Positive for heart failure and CVA in a sister. REVIEW OF SYSTEMS: Patient denies current headache, visual changes, neck pain, chest pain, shortness of breath, abdominal pain, nausea, vomiting or recent weight loss, fevers, chills, nausea, vomiting, numbness or tingling of extremities, bowel or bladder incontinence. He complains of right hip pain. PHYSICAL EXAM: GENERAL: The patient is a well-developed, well-nourished 81-year-old male in no acute distress. He is awake and alert. He is alert and oriented x 3. VITAL SIGNS: Temperature 96.0, pulse 89, respirations 18, blood pressure 154/81, O2 sat is 94% on 2 liters nasal cannula. HEAD: Patient is normocephalic. Pupils are equal. Patient has some swelling and bruising on the right side of his face and forehead. EYES: Pupils are equal. NECK: Soft and nontender. Trachea is midline. ABDOMEN: Soft, nontender, nondistended. EXTREMITIES: Examination of the bilateral upper extremities reveals no obvious pain or deformity with shoulder, elbow or wrist motion. He has good cap refill in his fingers. Skin is intact. Examination of the left leg reveals no pain with hip, knee or ankle motion. Skin is intact. Dorsalis pedis is palpable. Examination of the right leg reveals pain with any hip motion. He has no tenderness around his knee, tibia or ankle. Calf and thigh compartments are soft. Sensation is intact to the right foot. Skin is intact. X-RAYS: X-rays of the right hip were reviewed. X-rays reveal a mildly impacted right femoral neck fracture. LABS: The patient has a white blood cell count of 14.5, hematocrit of 35.6, and hemoglobin 11.9, INR is 1.1, BUN is 31 and creatinine is 1.48. IMPRESSION: 1. Diabetes. 2. Right femoral neck fracture. 3. Fall off ladder. 4. Hypertension. 5. Coronary artery disease. PLAN: Treatment options were discussed with the patient. At this point, the fracture appears to be relatively well aligned. I would recommend right hip pinning. I explained to the patient that if fracture displaces and it has become a displaced fracture, then I would recommend proceeding with right hip hemiarthroplasty. I will plan on surgery today. The risks of surgery include bleeding, infection, injury to arteries, nerves and blood vessels, avascular necrosis, need for hip replacement, hip dislocation, leg length discrepancies, as well as medical complications including blood clot, stroke, heart attack and . All questions were answered. I will plan on surgery today. A mid-level provider in my office, nurse practitioner or PA, may see this patient on a follow-up basis and continue to implement the objective of this plan including: Starting or adjusting medications, injections of muscle, tendon, bursa or joints, cast application, orthotic or brace application, physical therapy, further radiographic studies including x-ray, MRI, CT, ultrasounds or bone scan, vascular studies, neurologic studies, or other specialist consultations, and proceeding with surgical management as appropriate. MD KUSH Clemons/MALLORY , 06:44 AM , 06:58 AM
[2017-04-29] MEDS: METOPROLOL TARTRATE 25 MG TAB PO SCH ×2 (07:01→20:05)
[2017-04-29] MEDS ORDERED: ceFAZolin INJ 1,000 MG VIAL ONE (08:59)
[2017-04-29] MEDS ORDERED: VANCOMYCIN HCL 1000 MG VIAL ONE (09:00)
[2017-04-29] MEDS ORDERED: FAMOTIDINE 20 MG/2 ML VIAL ONE (09:59)
[2017-04-29] MEDS ORDERED: ACETAMINOPHEN 1000 MG/100 ML 100 ML IV ONE (09:59)
--- NOTE | 2017-04-29 10:35 | PD.OP ---
cc: Kurt Nieves MD Operative Report Date of Surgery: Apr 29, 2017 Preoperative Diagnosis: Partially displaced right femoral neck fracture Postoperative Diagnosis: Procedure: Right hip hemiarthroplasty Surgeon: Kurt Nieves Wire Fence Erector(s): MADINA Fischer PA-C The surgical procedure was assisted by my physician assistant prosecuting attorney. My P.A. presence was necessary throughout this case for the manipulation and positioning of the surgical extremity. My P.A. was assisting me throughout the duration of this procedure. The skill set of a physician assistant prosecuting attorney was medically necessary to complete this procedure. During the surgical case the assistant professor surgical technology was working at the back table and the physician assistant prosecuting attorney was directly assisting me. Operation and Findings: PLAN OF ACTIVITY Weight bear as tolerated. IMPLANTS USED DePuy Corail size [11] stem with size [52] bipolar head and [+1] neck. DETAILS OF PROCEDURE This patient was brought into the operating room and placed on the OR table. The patient was given IV sedation and general anesthesia. The patient received IV antibiotics. Patient was positioned on a fracture table for a possible hip pinning. Timeout procedure was performed. Procedure began with visualization of the right hip under fluoroscopy. Patient's initial x-rays in the emergency room revealed minimally displaced right femoral neck fracture. Fluoroscopic x- rays in the operating room revealed a mildly displaced right femoral neck fracture with no impaction of the fracture. The fracture was vertical. Decision was made at this time to proceed with right hip hemiarthroplasty. Patient's fracture pattern appeared to be very high risk for nonunion or malunion of the femoral neck. Hemiarthroplasty would have a lower risk of competitions and need for additional surgery with this fracture. The patient was then placed in lateral decubitus position. The hip and leg were prepped with alcohol, followed by Hibiclens and draped in a usual sterile fashion. Clean air was used for this procedure. Time out procedure was performed. The procedure began with a 5 inch incision over the posterolateral hip. The subcutaneous tissue was dissected with the Bovie. The iliotibial band were split in line with fibers. The Charnley retractor was placed. The piriformis and external rotators were released from the femur and tagged with a #1 Vicryl suture. The capsule is now incised and tagged with #1 Vicryl. The femoral neck fracture was now visualized. A corkscrew was now used to remove the femoral head. The femoral head was sized and measured. Soft tissue was now protected. The hip skid was placed underneath the femoral neck. An oscillating saw was used to make a femoral neck cut. At this point attention was turned to preparation of the proximal femur. A box osteotome was used to remove the lateral cortex of the femoral neck. The T- handle reamer was used to open the femoral canal. Next, the canal was broached. A lateralizing reamer was used to help lateralize the prosthesis. At this point a trial head and neck were placed. The hip was reduced. The patient was found to have excellent stability with good range of motion. Trial components were removed. Soft tissue and bone were thoroughly irrigated. A Corail stem was now opened. The stem was now impacted into the proximal femur. Care was taken to keep appropriate anteversion. The head and neck were now impacted onto the stem. The hip was again reduced. The hip was found to have good range of motion and good stability. Leg lengths were clinically equal. The wound was thoroughly irrigated. The capsule, piriformis and iliotibial band were closed with #1 Vicryl. Subcutaneous tissue was closed with 3-0 Vicryl. The skin was closed with jaz. A sterile dressing was applied with Primapore. The patient was placed into a knee immobilizer. The patient was awakened and transferred to the recovery room in stable condition. Needle and sponge counts were correct. Kurt Nieves MD Apr 29, 2017 10:35
[2017-04-29] MEDS ORDERED: Post-op Orders (for Pharmacy) XX ONE (11:00)
[2017-04-29] MEDS ORDERED: ERGOCALCIFEROL (VIT D2) 50,000 UNIT CAP PO ONE (11:00)
[2017-04-29] MEDS ORDERED: ceFAZolin 2 GM PREMIX 50 ML IV SCH (11:00)
[2017-04-29] MEDS ORDERED: MORPHINE SULFATE 4 MG/ML INJ ONE (11:09)
[2017-04-29] MEDS ORDERED: *morphine SULFATE 4 MG/ML PERIprocedure ONLY ONE (11:10)
[2017-04-29] MEDS ORDERED: *ENALAPRILAT 1.25 MG/ML VIAL PERIprocedural Use ONLY ONE (11:32)
[2017-04-29] MEDS ORDERED: *LABETALOL HCL 100 MG/20 ML VIAL PERIprocedural Use ONLY ONE (11:46)
[2017-04-29] MEDS ORDERED: NEOSTIGMINE 5 MG/5 ML SYRINGE IV PUSH ONE (12:00)
[2017-04-29] MEDS ORDERED: PHENYLEPH/NS 1000 MCG/10 ML SYR IV ONE (12:00)
[2017-04-29] MEDS ORDERED: LACTATED RINGER'S 1000 ML INJ 2,000 ML IV ONE (12:00)
[2017-04-29] MEDS ORDERED: DEXAMETHASONE SOD PHOS 4 MG/ML VIAL IV ONE (12:00)
[2017-04-29] MEDS ORDERED: PROPOFOL 200 MG/20 ML AMP IV ONE (12:00)
[2017-04-29] MEDS ORDERED: ROCURONIUM INJ 50 MG/5 ML SYRINGE IV PUSH ONE (12:00)
[2017-04-29] MEDS ORDERED: GLYCOPYRROLATE 1 MG/5 ML SYRINGE IV PUSH ONE (12:00)
[2017-04-29] MEDS ORDERED: ONDANSETRON HCL 4 MG/2 ML VIAL IV ONE (12:00)
[2017-04-29] MEDS ORDERED: ePHEDrine/NS 25 MG/5 ML SYRINGE IV ONE (12:00)
[2017-04-29] MEDS ORDERED: LIDOCAINE HCL 1% PF 5 ML SYRINGE OTHER ONE (12:00)
[2017-04-29] MEDS ORDERED: ONDANSETRON HCL 4 MG/2 ML VIAL ONE (12:21)
--- NOTE | 2017-04-29 12:44 | RADRPT ---
EXAM DATE/TIME: 04/29/2017 10:51 [facility] COMPARISON: No previous studies available for comparison. INDICATIONS : Post op right total hip replacement. MEDICAL HISTORY : None. SURGICAL HISTORY : None. ENCOUNTER: Initial ACUITY: 1 day PAIN SCORE: 0/10 LOCATION: Right Hip FINDINGS: Noncemented right sided total hip arthroplasty is in place with intact hardware and anatomic alignmen t. Skin jaz and soft tissue gas is present. Multiple hemoclips in the pelvis. Vascular calcificat ion proximal left thigh. CONCLUSION: Normal alignment postoperative right total hip arthroplasty. Luke Kennedy MD on April 29, 2017 at 12:42 Board Certified Radiologist. This report was verified electronically.
--- NOTE | 2017-04-29 13:29 | HHI.PR ---
Subjective Remarks s/p surgery, just getting oriented, he cough some phlegm tinged with blood, likely from extubation and NGT since he vomitted before the surgery, oriented, denies shortness of breath, chest pain or fever, not aware if he has CKD Objective Vitals Vital Signs Date Time Temp Pulse Resp B/P (MAP) Pulse Ox O2 Delivery O2 Flow Rate FiO2 04/29/17 11:30 79 14 172/67 (102) 100 Simple Mask 6 04/29/17 11:15 79 14 172/79 (110) 100 Simple Mask 6 04/29/17 11:00 85 14 186/81 (116) 100 Simple Mask 6 04/29/17 10:56 97.8 90 18 192/103 (132) 93 04/29/17 04:00 104 04/29/17 04:00 96.0 89 18 154/81 (105) 94 04/29/17 00:34 100 04/29/17 00:06 92 Nasal Cannula 2.00 04/29/17 00:00 95.8 98 18 168/82 (110) 91 04/28/17 23:58 04/28/17 23:01 95 18 161/76 (104) 98 Nasal Cannula 2.00 04/28/17 19:55 98.0 86 16 164/76 (105) 99 Room Air 04/28/17 18:49 81 17 192/80 (117) I/O 04/28/17 04/28/17 04/28/17 04/29/17 04/29/17 04/29/17 07:00 15:00 23:00 07:00 15:00 23:00 Intake Total 450 ml 1000 ml Output Total 950 ml 400 ml Balance -500 ml 600 ml Intake Oral 0 ml IV Total 450 ml Other 1000 ml Output Urine Total 950 ml 300 ml Estimated Blood Loss 100 ml Bladder Scan Volume Amount 780 ml 780 ml 780 ml # Voids 1 # Bowel Movements 0 Result Diagram: 04/29/17 0329 04/29/17328 Objective Remarks Not in distress Ecchymosis right periorbital area Pupils equal reactive to light Trachea midline Regular rate and rhythm Clear breath sounds Abdomen soft nontender No edema Alert awake and oriented 3. No focal deficits. A/P Assessment and Plan This is a 81/M presenting with a fall R acute subcapital neck fracture secondary to a fall - s/p surgery, orthopedics following, continue pain control Dehydration vs CKD - ? Unknown to patient if he has CKD, could be secondary to dehydration, start normal saline, check BMP tomorrow. Hemoptysis-could be secondary to extubation versus NG tube placement. Hypertension -restart lisinopril and metoprolol, start Vasotec as needed for blood pressure more than 160 SBP Diabetes mellitus-sliding scale insulin for now, oral hyperglycemic agents on hold. Lovenox for DVT prophylaxis. Discharge Planning Possible discharge tomorrow after cleared by orthopedics. Braulio Valencia MD Apr 29, 2017 13:29
[2017-04-29] MEDS ORDERED: ENALAPRILAT 1.25 MG/ML VIAL IV PUSH PRN (13:30)
[2017-04-29] MEDS: SODIUM CHLORIDE 0.9% FLUSH 10 ML FLUSH IV FLUSH SCH ×2 (14:36→20:06)
[2017-04-29] MEDS: PRAVASTATIN SOD 40 MG TAB PO SCH (14:39)
[2017-04-29] MEDS: LISINOPRIL 5 MG TAB PO SCH (14:39)
[2017-04-29] MEDS: SODIUM CHLOR 0.9% 1000 ML INJ 1,000 ML IV SCH ×2 (14:44→20:06)
[2017-04-29] MEDS: DEXT 5%-NACL 0.45% 1000 ML INJ 1,000 ML IV SCH (20:00)
[2017-04-29] MEDS: ACETAMINOPHEN/HYDROcodone 325 MG/7.5 MG TAB PO PRN (20:05)
--- NOTE | 2017-04-29 23:35 | EKG ---
Date Performed: 04/28/2017 Time Performed: 19:53:12 PTAGE: 81 years EKG: Sinus rhythm INCOMPLETE RIGHT BUNDLE BRANCH BLOCK BORDERLINE ECG PREVIOUS TRACING : 04/07/2014 04.30 Since the previous tracing, no significant change noted DOCTOR: Ryder Machado Interpretating Date/Time 04/29/2017 23:32:49
[2017-04-30] VITALS (11 sets, daily range): BP systolic 114–168; BP diastolic 62–79; PULSE 64–97; RESP 17–18; TEMP 96.6–98.5; O2SAT 93–98
[2017-04-30] MEDS: SODIUM CHLOR 0.9% 1000 ML INJ 1,000 ML IV SCH (03:54)
[2017-04-30 04:44] LABS: HEMATOCRIT 29.3 % (39.0-51.0); HEMOGLOBIN 9.9 GM/DL (13.0-17.0)
[2017-04-30 05:10] LABS: BICARBONATE 26.8 MEQ/L (21.0-32.0); CALCIUM 7.8 MG/DL (8.5-10.1); CREATININE 1.47 MG/DL (0.60-1.30)
[2017-04-30] MEDS: ACETAMINOPHEN/HYDROcodone 325 MG/7.5 MG TAB PO PRN ×2 (06:03→08:55)
[2017-04-30] MEDS: MAGNESIUM HYDROXIDE SUSP 30 ML CUP PO PRN (06:03)
--- NOTE | 2017-04-30 06:34 | PD.ORT.PN ---
Subjective Subjective Remarks POD 1 s/p right hip hemiarthroplasty doing well. reports pain but controlled. has not been out of bed yet Objective Vitals Vital Signs Date Time Temp Pulse Resp B/P (MAP) Pulse Ox O2 Delivery O2 Flow Rate FiO2 04/30/17 06:12 94 Room Air 04/30/17 04:27 97.1 78 18 152/65 (94) 97 04/30/17 00:21 96.7 76 18 114/79 (91) 94 04/30/17 00:01 64 04/29/17 20:04 96 Nasal Cannula 2.00 04/29/17 20:03 96.7 77 18 125/62 (83) 96 04/29/17 20:00 83 04/29/17 16:54 65 04/29/17 15:49 96.5 68 17 142/65 (90) 97 04/29/17 11:30 79 14 172/67 (102) 100 Simple Mask 6 04/29/17 11:15 79 14 172/79 (110) 100 Simple Mask 6 04/29/17 11:00 85 14 186/81 (116) 100 Simple Mask 6 04/29/17 10:56 97.8 90 18 192/103 (132) 93 I/O 04/29/17 04/29/17 04/29/17 04/30/17 04/30/17 04/30/17 07:00 15:00 23:00 07:00 15:00 23:00 Intake Total 450 ml 1000 ml 580 ml 360 ml Output Total 950 ml 400 ml 425 ml 550 ml Balance -500 ml 600 ml 155 ml -190 ml Intake Oral 0 ml 480 ml 360 ml IV Total 450 ml 100 ml Other 1000 ml Output Urine Total 950 ml 300 ml 425 ml 550 ml Estimated Blood Loss 100 ml Bladder Scan Volume Amount 780 ml 780 ml 780 ml # Voids 1 # Bowel Movements 0 0 0 Result Diagram: 04/30/17 0410 04/30/17 0410 Imaging Last 24 hours Impressions Chest X-Ray 04/29/17 0000 Signed Impressions: Service Date/Time: Saturday, April 29, 2017 04:49 - CONCLUSION: No acute disease. Luke Alonso Jr., MD Pelvis X-Ray 04/28/17 1914 Signed Impressions: Service Date/Time: Friday, April 28, 2017 19:29 - CONCLUSION: Intact pelvis. Right femur x-ray to follow. Alec Mazariegos MD Head CT 04/28/171913 Signed Impressions: Service Date/Time: Friday, April 28, 2017 19:43 - CONCLUSION: No bleed or other acute intracranial abnormality. Blood in the paranasal sinuses. Please see above. Alec Mazariegos MD Femur X-Ray 04/28/171913 Signed Impressions: Service Date/Time: Friday, April 28, 2017 19:30 - CONCLUSION: Acute subcapital fracture of the right femur with mild impaction. Alec Mazariegos MD Objective Remarks RLE: dressings clean and dry. intact. NVI Assessment & Plan Assessment and Plan 1) Right Femoral Neck Fx s/p Hemiarthroplasty - POD 1 -WBAT -posterior hip precautions -knee brace while in bed -daily dressing changes with primapore -begin adding bacitracin on POD 10 -work with PT -CM for Dc planning -DVT prophylaxis -f/u with Thakkar or PA in 2 weeks Brian Bravo/Er Nurse PA Apr 30, 2017 06:34
[2017-04-30] MEDS: CHOLECALCIFEROL (VIT D3) 5000 UNIT CAP PO SCH (08:43)
[2017-04-30] MEDS: ENOXAPARIN SODIUM 30 MG/0.3 ML SYRINGE SQ SCH (08:43)
[2017-04-30] MEDS: LISINOPRIL 5 MG TAB PO SCH (08:43)
[2017-04-30] MEDS: METOPROLOL TARTRATE 25 MG TAB PO SCH ×2 (08:44→21:59)
[2017-04-30] MEDS: ASPIRIN 81 MG CHEW TAB CHEW SCH (08:44)
[2017-04-30] MEDS: PRAVASTATIN SOD 40 MG TAB PO SCH (08:45)
[2017-04-30] MEDS ORDERED: DEXTROSE 50% IN WATER 50 ML VIAL(D50) IV PUSH PRN (10:00)
[2017-04-30] MEDS ORDERED: GLUCAGON 1 MG/ML VIAL OTHER PRN (10:00)
[2017-04-30] MEDS: SODIUM CHLORIDE 0.9% FLUSH 10 ML FLUSH IV FLUSH SCH ×2 (10:01→21:59)
--- NOTE | 2017-04-30 10:13 | HHI.PR ---
Subjective Remarks Follow-up status post orthopedic surgery for right acute subcapital neck fracture. Patient seen and examined, lying in bed comfortably in no apparent distress. Denies any acute events overnight. Hemoptysis resolved. Patient's BP is stable, continue antihypertensives. Patient eating well and drinking well , denies any nausea or vomiting. NICANOR improving slightly. Patient complained of some urinary retention status post Garcia catheter removal. We will continue to monitor. Objective Vitals Vital Signs Date Time Temp Pulse Resp B/P (MAP) Pulse Ox O2 Delivery O2 Flow Rate FiO2 04/30/17 07:46 97.1 90 18 143/62 (89) 94 04/30/17 06:12 94 Room Air 04/30/17 04:27 97.1 78 18 152/65 (94) 97 04/30/17 03:48 77 04/30/17 00:21 96.7 76 18 114/79 (91) 94 04/30/17 00:01 64 04/29/17 20:04 96 Nasal Cannula 2.00 04/29/17 20:03 96.7 77 18 125/62 (83) 96 04/29/17 20:00 83 04/29/17 16:54 65 04/29/17 15:49 96.5 68 17 142/65 (90) 97 04/29/17 11:30 79 14 172/67 (102) 100 Simple Mask 6 04/29/17 11:15 79 14 172/79 (110) 100 Simple Mask 6 04/29/17 11:00 85 14 186/81 (116) 100 Simple Mask 6 04/29/17 10:56 97.8 90 18 192/103 (132) 93 I/O 04/29/17 04/29/17 04/29/17 04/30/17 04/30/17 04/30/17 07:00 15:00 23:00 07:00 15:00 23:00 Intake Total 450 ml 1000 ml 680 ml 660 ml Output Total 950 ml 400 ml 425 ml 550 ml Balance -500 ml 600 ml 255 ml 110 ml Intake Oral 0 ml 480 ml 360 ml IV Total 450 ml 200 ml 300 ml Other 1000 ml Output Urine Total 950 ml 300 ml 425 ml 550 ml Estimated Blood Loss 100 ml Bladder Scan Volume Amount 780 ml 780 ml 780 ml # Voids 1 # Bowel Movements 0 0 0 Result Diagram: 04/30/17 0410 04/30/17 0410 Imaging Last Impressions Hip and Pelvis X-Ray 04/29/17 1030 Signed Impressions: Service Date/Time: Saturday, April 29, 2017 10:51 - CONCLUSION: Normal alignment postoperative right total hip arthroplasty. Luke Kennedy MD Chest X-Ray 04/29/17 0000 Signed Impressions: Service Date/Time: Saturday, April 29, 2017 04:49 - CONCLUSION: No acute disease. Luke Alonso Jr., MD Pelvis X-Ray 04/28/171913 Signed Impressions: Service Date/Time: Friday, April 28, 2017 19:29 - CONCLUSION: Intact pelvis. Right femur x-ray to follow. Alec Mazariegos MD Head CT 04/28/171913 Signed Impressions: Service Date/Time: Friday, April 28, 2017 19:43 - CONCLUSION: No bleed or other acute intracranial abnormality. Blood in the paranasal sinuses. Please see above. Alec Mazariegos MD Femur X-Ray 04/28/171913 Signed Impressions: Service Date/Time: Friday, April 28, 2017 19:30 - CONCLUSION: Acute subcapital fracture of the right femur with mild impaction. Alec Mazariegos MD Objective Remarks GENERAL: Well-developed, well-nourished patient in [facility]. SKIN: Warm and dry. No rash. HEAD: Normocephalic. Atraumatic. EYES: Pupils equal and round. Ecchymosis to right periorbital area. ENT: No nasal bleeding or discharge. Mucous membranes pink and moist. NECK: Supple. Trachea midline. CARDIOVASCULAR: Regular rate and rhythm. S1, S2 noted. No murmur appreciated. RESPIRATORY: No accessory muscle use. Clear to auscultation. Breath sounds equal bilaterally. GASTROINTESTINAL: Abdomen soft, non-tender, nondistended. Normoactive bowel sounds x4. MUSCULOSKELETAL: No obvious deformities. Extremities without clubbing, cyanosis , or edema. NEUROLOGICAL: Awake and alert. No obvious cranial nerve deficits. Motor grossly within normal limits. 5/5 muscle strength in bilateral upper and lower extremities. Normal speech. A/P Assessment and Plan This is a 81/M presenting with a fall Right acute subcapital neck fracture secondary to a fall - s/p surgery, orthopedics following, continue pain control. Continue PT. Normocytic normochromic anemia, suspect secondary to acute blood loss secondary to surgery. Hemoglobin 9.9 from 11.9 yesterday. Monitor for any bleeding. None present at this time. Will check CBC in a.m. Continue to follow. Acute kidney disease suspect secondary to dehydration versus chronic kidney disease, unknown to patient: Continued on IV fluids. Creatinine improving slightly, 1.47 today. Monitor BMP. Hemoptysis, resolved: Could be secondary to extubation versus NG tube placement. Continue to monitor. Hypertension, chronic: Continue lisinopril metoprolol. Vasotec as needed. Continue to monitor BP trends. Diabetes mellitus, chronic: Accu-Chek before meals at bedtime, sliding scale, cover as needed. Hold oral hypoglycemic agents for now. History of BPH: We will start Flomax. Complaint of some urinary retention. Monitor intake and output. DVT prophylaxis: Lovenox Discharge Planning Possible discharge tomorrow if hemoglobin stable and NICANOR improving and if improved by orthopedics. Raquel Riley Apr 30, 2017 10:13
[2017-04-30] MEDS: INSULIN ASPART SUPPLEMENTAL SCALE SQ SCH ×3 (13:08→21:00)
[2017-04-30] MEDS: TAMSULOSIN HCL 0.4 MG CAP PO SCH (19:54)
[2017-04-30] MEDS: DEXT 5%-NACL 0.45% 1000 ML INJ 1,000 ML IV SCH (21:08)
[2017-05-01] VITALS (8 sets, daily range): BP systolic 112–162; BP diastolic 54–67; PULSE 76–112; RESP 18–20; TEMP 96.3–98.9; O2SAT 92–96
[2017-05-01] MEDS: SODIUM CHLOR 0.9% 1000 ML INJ 1,000 ML IV SCH ×2 (01:15→13:10)
[2017-05-01] MEDS ORDERED: ALPRAZolam 0.25 MG TAB PO ONE (03:00)
[2017-05-01 07:00] LABS: BASOPHIL % 0.2 % (0.0-2.0); EOSINOPHIL % 0.2 % (0.0-4.0); HEMATOCRIT 26.1 % (39.0-51.0); LYMPH % 8.5 % (9.0-44.0); LYMPHOCYTE # 0.9 TH/MM3 (1.0-4.8); MEAN CELL VOLUME 95.5 FL (80.0-100.0); MEAN CORPUSCULAR HEMOGLOBIN 32.9 PG (27.0-34.0); MEAN CORPUSCULAR HGB CONC 34.5 % (32.0-36.0); MEAN PLATELET VOLUME 9.2 FL (7.0-11.0); MONO % 11.5 % (0.0-8.0); MONOCYTE # 1.2 TH/MM3 (0-0.9); NEUT % 79.6 % (16.0-70.0); PLATELET COUNT 144 TH/MM3 (150-450); RED BLOOD COUNT 2.74 MIL/MM3 (4.50-5.90); RED CELL DISTRIBUTION WIDTH 12.6 % (11.6-17.2); WHITE BLOOD COUNT 10.1 TH/MM3 (4.0-11.0)
[2017-05-01 07:28] LABS: BICARBONATE 26.2 MEQ/L (21.0-32.0); CALCIUM 7.8 MG/DL (8.5-10.1); CREATININE 1.29 MG/DL (0.60-1.30)
--- NOTE | 2017-05-01 07:38 | PD.ORT.PN ---
Subjective Subjective Remarks POD 2 s/p right hip hemiarthroplasty doing well. reports hip is doing well. but reports heartburn and anxiety Objective Vitals Vital Signs Date Time Temp Pulse Resp B/P (MAP) Pulse Ox O2 Delivery O2 Flow Rate FiO2 05/01/17 04:23 98.4 94 18 139/54 (82) 92 05/01/17 03:37 Room Air 04/30/17 23:59 97.9 93 18 121/66 (84) 98 04/30/17 23:57 87 04/30/17 20:28 92 04/30/17 19:57 98.5 97 18 159/72 (101) 98 04/30/17 16:12 96.6 83 18 168/70 (102) 93 04/30/17 11:56 96.7 77 17 144/75 (98) 95 04/30/17 07:46 97.1 90 18 143/62 (89) 94 I/O 04/30/17 04/30/17 04/30/17 05/01/17 05/01/17 05/01/17 07:00 15:00 23:00 07:00 15:00 23:00 Intake Total 660 ml 750 ml 360 ml 480 ml Output Total 550 ml Balance 110 ml 750 ml 360 ml 480 ml Intake Oral 360 ml 750 ml 360 ml 480 ml IV Total 300 ml Output Urine Total 550 ml # Voids 1 1 # Bowel Movements 0 0 0 Result Diagram: 05/01/17 0604 05/01/17 0604 Imaging Last 24 hours Impressions Chest X-Ray 04/29/17 0000 Signed Impressions: Service Date/Time: Saturday, April 29, 2017 04:49 - CONCLUSION: No acute disease. Luke Alonso Jr., MD Pelvis X-Ray 04/28/171913 Signed Impressions: Service Date/Time: Friday, April 28, 2017 19:29 - CONCLUSION: Intact pelvis. Right femur x-ray to follow. Alec Mazariegos MD Head CT 04/28/171913 Signed Impressions: Service Date/Time: Friday, April 28, 2017 19:43 - CONCLUSION: No bleed or other acute intracranial abnormality. Blood in the paranasal sinuses. Please see above. Alec Mazariegos MD Femur X-Ray 04/28/171913 Signed Impressions: Service Date/Time: Friday, April 28, 2017 19:30 - CONCLUSION: Acute subcapital fracture of the right femur with mild impaction. Alec Mazariegos MD Objective Remarks RLE: dressings clean and dry. intact. NVI Assessment & Plan Assessment and Plan 1) Right Femoral Neck Fx s/p Hemiarthroplasty - POD 2 -WBAT -posterior hip precautions -knee brace while in bed -daily dressing changes with primapore -begin adding bacitracin on POD 10 -work with PT -CM for Dc planning. home with HHC vs SNF -DVT prophylaxis -f/u with Ariane or PA in 2 weeks Brian Bravo PA/Benefits Manager PA May 01, 2017 07:38
--- NOTE | 2017-05-01 07:39 | HHI.FF ---
Face to Face Verification Diagnosis: (1) S/P hip hemiarthroplasty Physical Therapy Gait training Hip: Total hip, Protocol: Right, Posterior hip precautions Right LE Weight Bearing: WB as tolerated Nursing Dressing Changes: Daily dressing change, Coverderm/Primapore (begin adding bacitracin POD 10) I have seen patient Kyler Butcher on 05/01/17. My clinical findings support the need for the requested home health care services because: Ltd mobility - disease progression I certify that my clinical findings support that this patient is homebound because: Post-op weakness Brian Bravo/Copping Machine Operator PA May 01, 2017 07:39
[2017-05-01] MEDS: INSULIN ASPART SUPPLEMENTAL SCALE SQ SCH ×4 (08:00→21:45)
[2017-05-01] MEDS: ENOXAPARIN SODIUM 30 MG/0.3 ML SYRINGE SQ SCH (08:30)
[2017-05-01] MEDS: CHOLECALCIFEROL (VIT D3) 5000 UNIT CAP PO SCH (08:30)
[2017-05-01] MEDS: PRAVASTATIN SOD 40 MG TAB PO SCH (08:30)
[2017-05-01] MEDS: LISINOPRIL 5 MG TAB PO SCH (08:30)
[2017-05-01] MEDS: TAMSULOSIN HCL 0.4 MG CAP PO SCH (08:31)
[2017-05-01] MEDS: METOPROLOL TARTRATE 25 MG TAB PO SCH ×2 (08:31→21:40)
[2017-05-01] MEDS: ASPIRIN 81 MG CHEW TAB CHEW SCH (08:34)
[2017-05-01] MEDS: SODIUM CHLORIDE 0.9% FLUSH 10 ML FLUSH IV FLUSH SCH ×2 (08:34→21:40)
--- NOTE | 2017-05-01 09:13 | HHI.PR ---
Subjective Remarks Follow up on patient with right hip fracture, s/p bipolar hip replacement. Patient seen and examined. Patient complaining of 4-5/10 burning nonradicular midsternal chest pain with associated nausea. He has not been able to tolerate breakfast this morning or dinner last night. He denies any active vomiting. States he takes Zantac at home occasionally with good results. He reports feeling claustrophobic and is requesting something to help with anxiety. He denies any issues with anxiety at home. He denies any fever or chills. He reports mild headache. He denies any lightheadedness, dizziness or vision changes. He denies any difficulty with urination. He denies any BM since admission but is passing flatus. Objective Vitals Vital Signs Date Time Temp Pulse Resp B/P (MAP) Pulse Ox O2 Delivery O2 Flow Rate FiO2 05/01/17 08:02 96.4 112 20 162/67 (98) 94 05/01/17 04:23 98.4 94 18 139/54 (82) 92 05/01/17 03:37 Room Air 04/30/17 23:59 97.9 93 18 121/66 (84) 98 04/30/17 23:57 87 04/30/17 20:28 92 04/30/17 19:57 98.5 97 18 159/72 (101) 98 04/30/17 16:12 96.6 83 18 168/70 (102) 93 04/30/17 11:56 96.7 77 17 144/75 (98) 95 I/O 04/30/17 04/30/17 04/30/17 05/01/17 05/01/17 05/01/17 07:00 15:00 23:00 07:00 15:00 23:00 Intake Total 660 ml 750 ml 360 ml 480 ml Output Total 550 ml Balance 110 ml 750 ml 360 ml 480 ml Intake Oral 360 ml 750 ml 360 ml 480 ml IV Total 300 ml Output Urine Total 550 ml # Voids 1 1 # Bowel Movements 0 0 0 Result Diagram: 05/01/17 0604 05/01/17 0604 Imaging Last Impressions Hip and Pelvis X-Ray 04/29/17 1030 Signed Impressions: Service Date/Time: Saturday, April 29, 2017 10:51 - CONCLUSION: Normal alignment postoperative right total hip arthroplasty. Luke Kennedy MD Chest X-Ray 04/29/17 0000 Signed Impressions: Service Date/Time: Saturday, April 29, 2017 04:49 - CONCLUSION: No acute disease. Luke Alonso Jr., MD Pelvis X-Ray 04/28/171913 Signed Impressions: Service Date/Time: Friday, April 28, 2017 19:29 - CONCLUSION: Intact pelvis. Right femur x-ray to follow. Alec Mazariegos MD Head CT 04/28/171913 Signed Impressions: Service Date/Time: Friday, April 28, 2017 19:43 - CONCLUSION: No bleed or other acute intracranial abnormality. Blood in the paranasal sinuses. Please see above. Alec Mazariegos MD Femur X-Ray 04/28/171913 Signed Impressions: Service Date/Time: Friday, April 28, 2017 19:30 - CONCLUSION: Acute subcapital fracture of the right femur with mild impaction. Alec Mazariegos MD Objective Remarks GENERAL: Well-developed, well-nourished elderly male patient in [facility]. Awake and alert. Sitting up in hospital bed. SKIN: Warm and dry. No rash. HEAD: Normocephalic. Atraumatic. EYES: EOMI. Ecchymosis to right periorbital area. ENT: No nasal bleeding or discharge. Mucous membranes pink and moist. NECK: Supple. Trachea midline. CARDIOVASCULAR: Regular rate and rhythm. S1, S2 noted. No murmur appreciated. RESPIRATORY: Nonlabored. Clear to auscultation. Breath sounds equal bilaterally. GASTROINTESTINAL: Abdomen soft, non-tender, nondistended. Normoactive bowel sounds x4. MUSCULOSKELETAL: No obvious deformities. Extremities without clubbing, cyanosis , or edema. Right LE in splint. NV intact distally. NEUROLOGICAL: Awake and alert. No obvious cranial nerve deficits. Motor grossly within normal limits. 5/5 muscle strength in bilateral upper and lower extremities except for RLE limited due to injury/s/p surgery. Normal speech. Medications and IVs Current Medications Medications (Trade) Dose Ordered Sig/Enma Route Start Time Stop Time Status Last Admin (NS Flush) 2 ml UNSCH PRN IVF 04/28/17 19:15 (NS Flush) 2 ml UNSCH PRN IV FLUSH 3/13/18 21:15 (NS Flush) 2 ml BID IV FLUSH 04/29/17 09:00 05/01/17 08:34 (Narcan Inj) 0.4 mg UNSCH PRN IV PUSH 04/28/17 21:15 (Morphine Inj) 2 mg Q3H PRN IV PUSH 04/28/17 21:30 04/28/17 21:36 Dextrose/Sodium Chloride 1,000 ml @ 42 mls/hr [id number] IV 04/28/17 21:30 04/28/17 21:35 Lactated Ringer's 1,000 ml @ 30 mls/hr Q24H PRN IV 04/29/17 02:00 05/02/17 01:59 04/29/17 07:14 Sodium Chloride 500 ml @ 30 mls/hr [id number] PRN IV 04/29/17 02:00 05/02/17 01:59 (Lopressor) 25 mg [employer] PRN PO 04/29/17 02:00 05/02/17 01:59 (Betadine 5% Antisepsis Kit) 1 applic [employer] PRN EACH NARE 04/29/17 02:00 05/02/17 01:59 (Chlorhexidine 2% Cloth) 3 pack [employer] PRN TOPICAL 04/29/17 02:00 05/02/17 01:59 (NovoLIN R INJ) See Protocol Table ... [employer]CH[employer]ECT PRN SQ 04/29/17 02:00 05/02/17 01:59 04/29/17 07:00 (Aspirin Chew) 81 mg DAILY CHEW 04/29/17 09:00 05/01/17 08:34 (Prinivil) 5 mg DAILY PO 04/29/17 09:00 05/01/17 08:30 (Lopressor) 25 mg BID PO 04/29/17 09:00 05/01/17 08:31 (Pravachol) 40 mg DAILY PO 04/29/17 09:00 05/01/17 08:30 Cefazolin Sodium 1000 mg/Sodium Chloride 100 ml @ 200 mls/hr Q8H IV 04/29/17 05:00 05/01/17 05:54 (Lovenox Inj) 30 mg Q24H SQ 04/30/17 09:30 05/01/17 08:30 ([place] 7.5-325 Mg) 1 tab Q3H PRN PO 04/29/17 11:00 04/30/17 08:55 (Vitamin D3) 5,000 units DAILY PO 04/30/17 09:00 05/01/17 08:30 (Vasotec Inj) 1.25 mg Q6H PRN IV PUSH 04/29/17 13:30 Sodium Chloride 1,000 ml @ 84 mls/hr [id number] IV 04/29/17 13:30 04/30/17 03:54 (Milk Of Magnisabel Liq) 30 ml Q12H PRN PO 04/29/17 23:00 04/30/17 06:03 (D50w (Vial) Inj) 50 ml UNSCH PRN IV PUSH 04/30/17 10:00 (Glucagon Inj) 1 mg UNSCH PRN OTHER 04/30/17 10:00 (NovoLOG SUPPLEMENTAL SCALE) 1 ACHS SLIDING SCALE SQ 04/30/17 12:00 05/01/17 08:00 (Flomax) 0.4 mg DAILY PO 04/30/17 18:00 05/01/17 08:31 A/P Assessment and Plan This is a 81/M presenting with a fall Right acute subcapital neck fracture secondary to a fall - s/p surgery, orthopedics following, continue pain control. Continue PT. Per Ortho, WBAT, posterior hip precautions, knee brace on while in bed, daily dressing changes with Primapore and begin adding bacitracin on POD 10. Not tolerating diet secondary to nausea. Zofran prn. Chest pain, complaining of indigestion and anxiety - Maalox and Pepcid ordered. Low dose Xanax BID prn. Obtain troponin and EKG. Normocytic normochromic anemia, suspect secondary to acute blood loss secondary to surgery. Hemoglobin continues downward trend, now 9.0. Monitor for any bleeding. Continue to follow. H&H in am. Acute kidney disease suspect secondary to dehydration versus chronic kidney disease, unknown to patient: Continued on IV fluids. Creatinine trending downwards, now 1.29. Avoid nephrotoxic agents. Continue to monitor renal indices. Hemoptysis, resolved: Could be secondary to extubation versus NG tube placement. Continue to monitor. No recurrence. Hypertension, chronic: Continue lisinopril and metoprolol. Vasotec as needed. Continue to monitor BP trends. Diabetes mellitus, chronic: Accu-Chek before meals at bedtime, sliding scale, cover as needed. Hold oral hypoglycemic agents for now. Continue to hold until nausea improves and better able to tolerate diet. History of BPH: Continue on Flomax. Complaint of some urinary retention. Monitor intake and output. DVT prophylaxis: Lovenox with Xarelto at discharge Discharge Planning Possible discharge tomorrow to [facility] pending clinical course [place] Josue May 01, 2017 09:13
[2017-05-01] MEDS ORDERED: ALPRAZolam 0.25 MG TAB PO PRN (09:30)
[2017-05-01] MEDS ORDERED: ALUMINUM/MAGNESIUM/SIMETH 30 ML CUP PO PRN (09:30)
[2017-05-01] MEDS ORDERED: ALUMINUM/MAGNESIUM/SIMETH 30 ML CUP PO ONE (10:00)
[2017-05-01] MEDS: FAMOTIDINE 20 MG TAB PO SCH ×2 (13:21→21:40)
[2017-05-01] MEDS: ACETAMINOPHEN/HYDROcodone 325 MG/7.5 MG TAB PO PRN (13:21)
[2017-05-01] MEDS: DEXT 5%-NACL 0.45% 1000 ML INJ 1,000 ML IV SCH (20:57)
[2017-05-02] MEDS: SODIUM CHLOR 0.9% 1000 ML INJ 1,000 ML IV SCH ×2 (01:05→13:00)
[2017-05-02 04:25] VITALS: BP 126/57; PULSE 95; RESP 18; TEMP 98.8; O2SAT 97
[2017-05-02] MEDS: CHOLECALCIFEROL (VIT D3) 5000 UNIT CAP PO SCH (07:50)
[2017-05-02] MEDS: METOPROLOL TARTRATE 25 MG TAB PO SCH (07:50)
[2017-05-02] MEDS: FAMOTIDINE 20 MG TAB PO SCH (07:50)
[2017-05-02] MEDS: TAMSULOSIN HCL 0.4 MG CAP PO SCH (07:50)
[2017-05-02] MEDS: LISINOPRIL 5 MG TAB PO SCH (07:51)
[2017-05-02] MEDS: ASPIRIN 81 MG CHEW TAB CHEW SCH (07:51)
[2017-05-02] MEDS: SODIUM CHLORIDE 0.9% FLUSH 10 ML FLUSH IV FLUSH SCH (07:51)
[2017-05-02] MEDS: PRAVASTATIN SOD 40 MG TAB PO SCH (07:51)
[2017-05-02] MEDS: ACETAMINOPHEN/HYDROcodone 325 MG/7.5 MG TAB PO PRN (07:52)
[2017-05-02 08:00] VITALS: BP 147/65; PULSE 93; RESP 17; TEMP 99.3; O2SAT 95
[2017-05-02] MEDS: INSULIN ASPART SUPPLEMENTAL SCALE SQ SCH ×3 (08:00→17:00)
[2017-05-02 09:06] LABS: HEMATOCRIT 23.9 % (39.0-51.0); HEMOGLOBIN 8.2 GM/DL (13.0-17.0)
[2017-05-02] MEDS: ENOXAPARIN SODIUM 30 MG/0.3 ML SYRINGE SQ SCH (10:57)
[2017-05-02 12:00] VITALS: BP 111/51; PULSE 79; RESP 18; TEMP 98.2; O2SAT 95
--- NOTE | 2017-05-02 12:18 | HHI.PR ---
Subjective Remarks 05-01 Follow up on patient with right hip fracture, s/p bipolar hip replacement. Patient seen and examined. Patient complaining of 4-5/10 burning nonradicular midsternal chest pain with associated nausea. He has not been able to tolerate breakfast this morning or dinner last night. He denies any active vomiting. States he takes Zantac at home occasionally with good results. He reports feeling claustrophobic and is requesting something to help with anxiety. He denies any issues with anxiety at home. He denies any fever or chills. He reports mild headache. He denies any lightheadedness, dizziness or vision changes. He denies any difficulty with urination. He denies any BM since admission but is passing flatus. 3- WANTS TO GO TO SNF HAS SELECTED ONE WILL ADJUST HIS MEDICATIONS DW RN AD PT OK FOR SNF SEE 3008 RX WRITTEN Objective Vitals Vital Signs Date Time Temp Pulse Resp B/P (MAP) Pulse Ox O2 Delivery O2 Flow Rate FiO2 05/02/17 12:00 98.2 79 18 111/51 (71) 95 05/02/17 08:00 99.3 93 17 147/65 (92) 95 05/02/17 04:25 98.8 95 18 126/57 (80) 97 05/01/17 23:54 76 05/01/17 23:05 97.8 91 18 135/63 (87) 96 05/01/17 21:45 Room Air 05/01/17 19:44 89 05/01/17 19:16 98.9 93 18 147/60 (89) 95 05/01/17 16:00 97.6 92 19 112/56 (74) 95 I/O 05/01/17 05/01/17 05/01/17 05/02/17 05/02/17 05/02/17 07:00 15:00 23:00 07:00 15:00 23:00 Intake Total 480 ml 960 ml 360 ml 480 ml Output Total 450 ml 300 ml Balance 480 ml 510 ml 360 ml 180 ml Intake Oral 480 ml 960 ml 360 ml 480 ml Output Urine Total 450 ml 300 ml # Voids 1 2 # Bowel Movements 0 0 0 0 Result Diagram: 05/02/17 0825 05/01/17 0604 Other Results Laboratory Tests Test 04/30/17 04:10 05/01/17 06:04 05/01/17 11:41 05/02/17 08:25 Hemoglobin 9.9 GM/DL 9.0 GM/DL 8.2 GM/DL Hematocrit 29.3 % 26.1 % 23.9 % Blood Urea Nitrogen 27 MG/DL 25 MG/DL Creatinine 1.47 MG/DL 1.29 MG/DL Random Glucose 199 MG/DL 207 MG/DL Calcium Level 7.8 MG/DL 7.8 MG/DL Sodium Level 137 MEQ/L 136 MEQ/L Potassium Level 4.5 MEQ/L 4.5 MEQ/L Chloride Level 103 MEQ/L 102 MEQ/L Carbon Dioxide Level 26.8 MEQ/L 26.2 MEQ/L Anion Gap 7 MEQ/L 8 MEQ/L Estimat Glomerular Filtration Rate 46 ML/MIN 54 ML/MIN White Blood Count 10.1 TH/MM3 Red Blood Count 2.74 MIL/MM3 Mean Corpuscular Volume 95.5 FL Mean Corpuscular Hemoglobin 32.9 PG Mean Corpuscular Hemoglobin Concent 34.5 % Red Cell Distribution Width 12.6 % Platelet Count 144 TH/MM3 Mean Platelet Volume 9.2 FL Neutrophils (%) (Auto) 79.6 % Lymphocytes (%) (Auto) 8.5 % Monocytes (%) (Auto) 11.5 % Eosinophils (%) (Auto) 0.2 % Basophils (%) (Auto) 0.2 % Neutrophils # (Auto) 8.0 TH/MM3 Lymphocytes # (Auto) 0.9 TH/MM3 Monocytes # (Auto) 1.2 TH/MM3 Eosinophils # (Auto) 0.0 TH/MM3 Basophils # (Auto) 0.0 TH/MM3 CBC Comment DIFF FINAL Differential Comment Troponin I LESS THAN 0.02 NG/ML Imaging Last Impressions Hip and Pelvis X-Ray 04/29/17 1030 Signed Impressions: Service Date/Time: Saturday, April 29, 2017 10:51 - CONCLUSION: Normal alignment postoperative right total hip arthroplasty. Luke Kennedy MD Chest X-Ray 04/29/17 0000 Signed Impressions: Service Date/Time: Saturday, April 29, 2017 04:49 - CONCLUSION: No acute disease. Luke Alonso Jr., MD Pelvis X-Ray 04/28/17 1914 Signed Impressions: Service Date/Time: Friday, April 28, 2017 19:29 - CONCLUSION: Intact pelvis. Right femur x-ray to follow. Alec Mazariegos MD Head CT 04/28/[id number] Signed Impressions: Service Date/Time: Friday, April 28, 2017 19:43 - CONCLUSION: No bleed or other acute intracranial abnormality. Blood in the paranasal sinuses. Please see above. Alec Mazariegos MD Femur X-Ray 04/28/[id number] Signed Impressions: Service Date/Time: Friday, April 28, 2017 19:30 - CONCLUSION: Acute subcapital fracture of the right femur with mild impaction. Alec Mazariegos MD Objective Remarks GENERAL: Awake alert oriented 3 talkative and cooperative in no acute distress SKIN: Warm and dry. HEAD: Atraumatic. Normocephalic. EYES: Pupils equal and round. No scleral icterus. No injection or drainage. Extraocular muscles intact wearing glasses ecchymosis around right eye orbit ENT: No nasal bleeding or discharge. Mucous membranes pink and moist. Tongue is midline NECK: Trachea midline. No JVD. Supple CARDIOVASCULAR: Regular rate and rhythm. S1-S2 no S3 or S4 RESPIRATORY: No accessory muscle use. Clear to auscultation. Breath sounds equal bilaterally. GASTROINTESTINAL: Abdomen soft, non-tender, nondistended. Hepatic and splenic margins not palpable. MUSCULOSKELETAL: Extremities without clubbing, cyanosis, or edema. No obvious deformities. NEUROLOGICAL: Awake and alert. No obvious cranial nerve deficits. Motor grossly within normal limits. 4 out of 5 muscle strength in the arms and legs. Normal speech. PSYCHIATRIC: Appropriate mood and affect; insight and judgment normal. Procedures Date of Surgery: Apr 29, 2017 Preoperative Diagnosis: Partially displaced right femoral neck fracture Postoperative Diagnosis: Procedure: Right hip hemiarthroplasty Surgeon: Kurt Thakkar Black Leather Trimmer(s): MADINA Fischer PA-C The surgical procedure was assisted by my physician podiatric assistant. My P.A. presence was necessary throughout this case for the manipulation and positioning of the surgical extremity. My P.A. was assisting me throughout the duration of this procedure. The skill set of a physician podiatric assistant was medically necessary to complete this procedure. During the surgical case the vending service technician was working at the back table and the physician podiatric assistant was directly assisting me. Operation and Findings: PLAN OF ACTIVITY Weight bear as tolerated. IMPLANTS USED DePuy Corail size [11] stem with size [52] bipolar head and [+1] neck. DETAILS OF PROCEDURE This patient was brought into the operating room and placed on the OR table. The patient was given IV sedation and general anesthesia. The patient received IV antibiotics. Patient was positioned on a fracture table for a possible hip pinning. Timeout procedure was performed. Procedure began with visualization of the right hip under fluoroscopy. Patient's initial x-rays in the emergency room revealed minimally displaced right femoral neck fracture. Fluoroscopic x- rays in the operating room revealed a mildly displaced right femoral neck fracture with no impaction of the fracture. The fracture was vertical. Decision was made at this time to proceed with right hip hemiarthroplasty. Patient's fracture pattern appeared to be very high risk for nonunion or malunion of the femoral neck. Hemiarthroplasty would have a lower risk of competitions and need for additional surgery with this fracture. The patient was then placed in lateral decubitus position. The hip and leg were prepped with alcohol, followed by Hibiclens and draped in a usual sterile fashion. Clean air was used for this procedure. Time out procedure was performed. The procedure began with a 5 inch incision over the posterolateral hip. The subcutaneous tissue was dissected with the Bovie. The iliotibial band were split in line with fibers. The Charnley retractor was placed. The piriformis and external rotators were released from the femur and tagged with a #1 Vicryl suture. The capsule is now incised and tagged with #1 Vicryl. The femoral neck fracture was now visualized. A corkscrew was now used to remove the femoral head. The femoral head was sized and measured. Soft tissue was now protected. The hip skid was placed underneath the femoral neck. An oscillating saw was used to make a femoral neck cut. At this point attention was turned to preparation of the proximal femur. A box osteotome was used to remove the lateral cortex of the femoral neck. The T- handle reamer was used to open the femoral canal. Next, the canal was broached. A lateralizing reamer was used to help lateralize the prosthesis. At this point a trial head and neck were placed. The hip was reduced. The patient was found to have excellent stability with good range of motion. Trial components were removed. Soft tissue and bone were thoroughly irrigated. A Corail stem was now opened. The stem was now impacted into the proximal femur. Care was taken to keep appropriate anteversion. The head and neck were now impacted onto the stem. The hip was again reduced. The hip was found to have good range of motion and good stability. Leg lengths were clinically equal. The wound was thoroughly irrigated. The capsule, piriformis and iliotibial band were closed with #1 Vicryl. Subcutaneous tissue was closed with 3-0 Vicryl. The skin was closed with jaz. A sterile dressing was applied with Primapore. The patient was placed into a knee immobilizer. The patient was awakened and transferred to the recovery room in stable condition. Needle and sponge counts were correct. Kurt Thakkar MD Apr 29, 2017 10:35 <Electronically signed by Kurt Thakkar MD> 04/29/17 1035 Medications and IVs Current Medications Morphine Sulfate (Morphine Inj) 4 mg ONCE ONCE IV PUSH Last administered on at 20:09; Start 04/28/17 at 19:15; Stop 04/28/17 at 19:16; Status DC Ondansetron HCl (Zofran Inj) 4 mg ONCE ONCE IVP Last administered on at 20:10; Start 04/28/17 at 19:15; Stop 04/28/17 at 19:16; Status DC Sodium Chloride (NS Flush) 2 ml UNSCH PRN IVF FLUSH AFTER USING IV ACCESS; Start 04/28/17 at 19:15 Lidocaine HCl (Xylocaine 2% Inj) 50 ml ONCE ONCE NERV BLOCK ; Start 04/28/17 at 20:15; Stop 04/28/17 at 20:16; Status DC Sodium Chloride (NS Flush) 2 ml UNSCH PRN IV FLUSH FLUSH AFTER USING IV ACCESS ; Start 04/28/17 at 21:15 Sodium Chloride (NS Flush) 2 ml BID IV FLUSH Last administered on 05/02/17at 07: 51; Start 04/29/17 at 09:00 Naloxone HCl (Narcan Inj) 0.4 mg UNSCH PRN IV PUSH SEE LABEL COMMENTS; Start at 21:15 Morphine Sulfate (Morphine Inj) 2 mg Q3H PRN IV PUSH pain >5 Last administered on 04/28/17at 21:36; Start 04/28/17 at 21:30 Dextrose (D50w (Vial) Inj) 50 ml UNSCH PRN IV PUSH HYPOGLYCEMIA-SEE COMMENTS; Start 04/28/17 at 21:30; Stop 04/30/17 at 10:23; Status DC Glucagon (Glucagon Inj) 1 mg UNSCH PRN OTHER HYPOGLYCEMIA-SEE COMMENTS; Start 04/28/17 at 21:30; Stop 04/30/17 at 10:23; Status DC Dextrose/Sodium Chloride 1,000 ml @ 42 mls/hr [id number] IV Last administered on 04/28/17at 21:35; Start 04/28/17 at 21:30 Hydromorphone HCl (Dilaudid Pf Inj) 0.5 mg ONCE ONCE IV PUSH Last administered on 04/28/17at 23:22; Start 04/28/17 at 23:15; Stop 04/28/17 at 23:16 ; Status DC Lactated Ringer's 1,000 ml @ 30 mls/hr Q24H PRN IV SEE LABEL COMMENTS Last administered on 04/29/17at 07:14; Start 04/29/17 at 02:00; Stop 05/02/17 at 01:59 ; Status DC Sodium Chloride 500 ml @ 30 mls/hr [id number] PRN IV SEE LABEL COMMENTS; Start at 02:00; Stop 05/02/17 at 01:59; Status DC Metoprolol Tartrate (Lopressor) 25 mg BITE BLOCK MAKER PRN PO SEE LABEL COMMENTS; Start 04/29/17 at 02:00; Stop 05/02/17 at 01:59; Status DC Povidone Iodine (Betadine 5% Antisepsis Kit) 1 applic BITE BLOCK MAKER PRN EACH NARE SEE LABEL COMMENTS; Start 04/29/17 at 02:00; Stop 05/02/17 at 01:59; Status DC Chlorhexidine Gluconate (Chlorhexidine 2% Cloth) 3 pack BITE BLOCK MAKER PRN TOPICAL SEE LABEL COMMENTS; Start 04/29/17 at 02:00; Stop 05/02/17 at 01:59; Status DC Insulin Human Regular (NovoLIN R INJ) See Protocol Table ... BITE BLOCK MAKER PRN SQ SEE PROTOCOL TABLE Last administered on 04/29/17at 07:00; Start 04/29/17 at 02:00 ; Stop 05/02/17 at 01:59; Status DC Aspirin (Aspirin Chew) 81 mg DAILY CHEW Last administered on 05/02/17at 07:51; Start 04/29/17 at 09:00 Lisinopril (Prinivil) 5 mg DAILY PO Last administered on 05/02/17at 07:51; Start 04/29/17 at 09:00 Metoprolol Tartrate (Lopressor) 25 mg BID PO Last administered on 05/02/17at 07: 50; Start 04/29/17 at 09:00 Pravastatin Sodium (Pravachol) 40 mg DAILY PO Last administered on 05/02/17at 07 :51; Start 04/29/17 at 09:00 Cefazolin Sodium 1000 mg/Sodium Chloride 100 ml @ 200 mls/hr Q8H IV Last administered on 05/02/17at 05:08; Start 04/29/17 at 05:00 Cefazolin Sodium (Ancef Inj) 2,000 mg STK-MED ONCE .ROUTE Last administered on 04/29/17at 09:20; Start 04/29/17 at 08:59; Stop 04/29/17 at 09:00; Status DC Vancomycin HCl (Vancomycin Inj) 1,000 mg STK-MED ONCE .ROUTE Last administered on 04/29/17at 09:45; Start 04/29/17 at 09:00; Stop 04/29/17 at 09:01; Status DC Acetaminophen 100 ml @ As Directed STK-MED ONCE IV ; Start 04/29/17 at 09:59; Stop 04/29/17 at 10:00; Status DC Famotidine (Pepcid Inj) 20 mg STK-MED ONCE .ROUTE ; Start 04/29/17 at 09:59; Stop 04/29/17 at 10:00; Status DC Cefazolin Sodium/ Dextrose 50 ml @ 100 mls/hr Q6H IV ; Start 04/29/17 at 11:00 ; Stop 04/29/17 at 23:29; Status Cancel Miscellaneous Information (Post-op Orders (for Pharmacy)) STAT ONCE XX ; Start 04/29/17 at 11:00; Stop 04/29/17 at 11:01; Status DC Enoxaparin Sodium (Lovenox Inj) 30 mg Q24H SQ Last administered on 05/02/17at 10 :57; Start 04/30/17 at 09:30 Acetaminophen/ Hydrocodone Bitart ([place] 7.5-325 Mg) 1 tab Q3H PRN PO PAIN 3< 10 Last administered on 05/02/17at 07:52; Start 04/29/17 at 11:00 Ergocalciferol (Drisdol) 50,000 units ONCE ONCE PO Last administered on at 14:36; Start 04/29/17 at 11:00; Stop 04/29/17 at 11:01; Status DC Cholecalciferol (Vitamin D3) 5,000 units DAILY PO Last administered on at 07:50; Start 04/30/17 at 09:00 Fentanyl Citrate (fentaNYL INJ) 300 mcg STK-MED ONCE .ROUTE ; Start 04/29/17 at 11:08; Stop 04/29/17 at 11:09; Status DC Morphine Sulfate (Morphine Inj) 4 mg STK-MED ONCE .ROUTE Last administered on at 11:09; Start 04/29/17 at 11:09; Stop 04/29/17 at 11:10; Status DC Morphine Sulfate (*morphine INJ PERIprocedure ONLY) 4 mg STK-MED ONCE .ROUTE Last administered on 04/29/17at 11:10; Start 04/29/17 at 11:10; Stop 04/29/17 at 11:11; Status DC Enalaprilat (*VASOTEC INJ PERIprocedural Use ONLY) 1.25 mg STK-MED ONCE .ROUTE Last administered on 04/29/17at 11:32; Start 04/29/17 at 11:32; Stop 04/29/17 at 11:33; Status DC Labetalol HCl (*TRANDATE INJ PERIprocedural Use ONLY) 100 mg STK-MED ONCE .ROUTE Last administered on 04/29/17at 11:46; Start 04/29/17 at 11:46; Stop at 11:47; Status DC Ondansetron HCl (Zofran Inj) 4 mg STK-MED ONCE .ROUTE Last administered on 04/29at 12:21; Start 04/29/17 at 12:21; Stop 04/29/17 at 12:22; Status DC Enalaprilat (Vasotec Inj) 1.25 mg Q6H PRN IV PUSH PRN SBP >160; Start 04/29/17 at 13:30 Sodium Chloride 1,000 ml @ 84 mls/hr [id number] IV Last administered on at 03:54; Start 04/29/17 at 13:30 Magnesium Hydroxide (Milk Of Magnesia Liq) 30 ml Q12H PRN PO MILD CONSTIPATION Last administered on 04/30/17at 06:03; Start 04/29/17 at 23:00 Dextrose (D50w (Vial) Inj) 50 ml UNSCH PRN IV PUSH HYPOGLYCEMIA-SEE COMMENTS; Start 04/30/17 at 10:00 Glucagon (Glucagon Inj) 1 mg UNSCH PRN OTHER HYPOGLYCEMIA-SEE COMMENTS; Start 04/30/17 at 10:00 Insulin Aspart (NovoLOG SUPPLEMENTAL SCALE) 1 ACHS SLIDING SCALE SQ Last administered on 05/01/17at 21:45; Start 04/30/17 at 12:00 Tamsulosin HCl (Flomax) 0.4 mg DAILY PO Last administered on 05/02/17at 07:50; Start 04/30/17 at 18:00 Alprazolam (Xanax) 0.25 mg ONCE ONCE PO Last administered on 05/01/17at 03:16; Start 05/01/17 at 03:00; Stop 05/01/17 at 03:02; Status DC Al Hydrox/Mg Hydrox/Simethicone (Mag-Al Plus Susp Liq) 30 ml ONCE ONCE PO Last administered on 05/01/17at 10:14; Start 05/01/17 at 10:00; Stop 05/01/17 at 10:03; Status DC Al Hydrox/Mg Hydrox/Simethicone (Mag-Al Plus Susp Liq) 30 ml Q6H PRN PO HEARTBURN/INDIGESTION; Start 05/01/17 at 09:30 Alprazolam (Xanax) 0.25 mg BID PRN PO Anxiety Last administered on 05/01/17at 22 :44; Start 05/01/17 at 09:30 Famotidine (Pepcid) 10 mg BID PO Last administered on 05/02/17at 07:50; Start at 10:00 Lactated Ringer's 2,000 ml @ As Directed STK-MED ONCE IV ; Start 04/29/17 at 12 :00; Stop 05/01/17 at 15:21; Status DC Lidocaine HCl (Xylocaine-Mpf 1% Inj) 5 ml STK-MED ONCE OTHER ; Start 04/29/17 at 12:00; Stop 05/01/17 at 15:21; Status DC Rocuronium [place] (Zemuron Inj) 100 mg STK-MED ONCE IV PUSH ; Start 04/29/17 at 12:00; Stop 05/01/17 at 15:21; Status DC Neostigmine Methylsulfate (Prostigmine Inj) 5 mg STK-MED ONCE IV PUSH ; Start at 12:00; Stop 05/01/17 at 15:21; Status DC Glycopyrrolate (Robinul Inj) 1 mg STK-MED ONCE IV PUSH ; Start 04/29/17 at 12:00 ; Stop 05/01/17 at 15:21; Status DC Phenylephrine HCl (Neosynephrine/ NS 1000 Mcg/10ml Syr) 1,000 mcg STK-MED ONCE IV ; Start 04/29/17 at 12:00; Stop 05/01/17 at 15:21; Status DC Ephedrine Sulfate (ePHEDrine/NS 25 MG/5 ML SYR) 25 mg STK-MED ONCE IV ; Start at 12:00; Stop 05/01/17 at 15:21; Status DC Dexamethasone Sodium Phosphate (Decadron Inj) 4 mg STK-MED ONCE IV ; Start 04/29 at 12:00; Stop 05/01/17 at 15:21; Status DC Ondansetron HCl (Zofran Inj) 4 mg STK-MED ONCE IV ; Start 04/29/17 at 12:00; Stop 05/01/17 at 15:21; Status DC Propofol (Diprivan 200 Mg/20 ml Inj) 200 mg STK-MED ONCE IV ; Start 04/29/17 at 12:00; Stop 05/01/17 at 15:21; Status DC A/P Assessment and Plan This is a 81/M presenting with a fall Right acute subcapital neck fracture secondary to a fall - s/p surgery, orthopedics following, continue pain control. Continue PT. Per Ortho, WBAT, posterior hip precautions, knee brace on while in bed, daily dressing changes with Primapore and begin adding bacitracin on POD 10. Not tolerating diet secondary to nausea. Zofran prn. Chest pain, complaining of indigestion and anxiety - Maalox and Pepcid ordered. Low dose Xanax BID prn. Obtain troponin and EKG. Normocytic normochromic anemia, suspect secondary to acute blood loss secondary to surgery. Hemoglobin continues downward trend, now 9.0. Monitor for any bleeding. Continue to follow. H&H in am. Acute kidney disease suspect secondary to dehydration versus chronic kidney disease, unknown to patient: Continued on IV fluids. Creatinine trending downwards, now 1.29. Avoid nephrotoxic agents. Continue to monitor renal indices. Hemoptysis, resolved: Could be secondary to extubation versus NG tube placement. Continue to monitor. No recurrence. Hypertension, chronic: Continue lisinopril and metoprolol. Vasotec as needed. Continue to monitor BP trends. Diabetes mellitus, chronic: Accu-Chek before meals at bedtime, sliding scale, cover as needed. Hold oral hypoglycemic agents for now. Continue to hold until nausea improves and better able to tolerate diet. History of BPH: Continue on Flomax. Complaint of some urinary retention. Monitor intake and output. GERD CONTINUE H2 PARVIZ ANXIETY CONTINUE XANAX DVT prophylaxis: Lovenox with Xarelto at discharge DW RN AND PT AND CM Discharge Planning DC TO SNF TODAY Abdifatah Puentes DO May 02, 2017 12:18
[2017-05-02] MEDS ORDERED: ALPR.25 PO (12:21)
[2017-05-02] MEDS ORDERED: TAMS5CAP PO (12:21)
[2017-05-02] MEDS ORDERED: FAMO20TA2 PO (12:21)
[2017-05-02] MEDS ORDERED: FERR200T PO (12:23)
[2017-05-02] MEDS ORDERED: SENN1TAB PO (12:23)
--- NOTE | 2017-05-02 12:25 | HHI.DS ---
Discharge Summary Admission Date Apr 28, 2017 at 21:15 Discharge Date: May 02, 2017 Admitting Diagnosis Fall; R Hip Fracture; Scalp Laceration (1) Diabetes mellitus type 2, uncontrolled ICD Code: E11.65 - Diabetes mellitus type 2, uncontrolled Diagnosis: Secondary Status: Acute (2) Fracture of femoral neck, right ICD Code: S72.001A - Fracture of unspecified part of neck of right femur, initial encounter for closed fracture Diagnosis: Principal (3) Hypertension, benign ICD Code: I10 - Hypertension, benign Diagnosis: Secondary Status: Acute (4) S/P hip hemiarthroplasty ICD Code: Z96.649 - Presence of unspecified artificial hip joint Diagnosis: Principal Procedures Date of Surgery: Apr 29, 2017 Preoperative Diagnosis: Partially displaced right femoral neck fracture Postoperative Diagnosis: Procedure: Right hip hemiarthroplasty Surgeon: Kurt Thakkar Chief Operator Reformer(s): MADINA Fischer PA-C The surgical procedure was assisted by my physician assistant professor of theater. My P.A. presence was necessary throughout this case for the manipulation and positioning of the surgical extremity. My P.A. was assisting me throughout the duration of this procedure. The skill set of a physician assistant professor of theater was medically necessary to complete this procedure. During the surgical case the regional vice president surgical sales was working at the back table and the physician assistant professor of theater was directly assisting me. Operation and Findings: PLAN OF ACTIVITY Weight bear as tolerated. IMPLANTS USED DePuy Corail size [11] stem with size [52] bipolar head and [+1] neck. DETAILS OF PROCEDURE This patient was brought into the operating room and placed on the OR table. The patient was given IV sedation and general anesthesia. The patient received IV antibiotics. Patient was positioned on a fracture table for a possible hip pinning. Timeout procedure was performed. Procedure began with visualization of the right hip under fluoroscopy. Patient's initial x-rays in the emergency room revealed minimally displaced right femoral neck fracture. Fluoroscopic x- rays in the operating room revealed a mildly displaced right femoral neck fracture with no impaction of the fracture. The fracture was vertical. Decision was made at this time to proceed with right hip hemiarthroplasty. Patient's fracture pattern appeared to be very high risk for nonunion or malunion of the femoral neck. Hemiarthroplasty would have a lower risk of competitions and need for additional surgery with this fracture. The patient was then placed in lateral decubitus position. The hip and leg were prepped with alcohol, followed by Hibiclens and draped in a usual sterile fashion. Clean air was used for this procedure. Time out procedure was performed. The procedure began with a 5 inch incision over the posterolateral hip. The subcutaneous tissue was dissected with the Bovie. The iliotibial band were split in line with fibers. The Charnley retractor was placed. The piriformis and external rotators were released from the femur and tagged with a #1 Vicryl suture. The capsule is now incised and tagged with #1 Vicryl. The femoral neck fracture was now visualized. A corkscrew was now used to remove the femoral head. The femoral head was sized and measured. Soft tissue was now protected. The hip skid was placed underneath the femoral neck. An oscillating saw was used to make a femoral neck cut. At this point attention was turned to preparation of the proximal femur. A box osteotome was used to remove the lateral cortex of the femoral neck. The T- handle reamer was used to open the femoral canal. Next, the canal was broached. A lateralizing reamer was used to help lateralize the prosthesis. At this point a trial head and neck were placed. The hip was reduced. The patient was found to have excellent stability with good range of motion. Trial components were removed. Soft tissue and bone were thoroughly irrigated. A Corail stem was now opened. The stem was now impacted into the proximal femur. Care was taken to keep appropriate anteversion. The head and neck were now impacted onto the stem. The hip was again reduced. The hip was found to have good range of motion and good stability. Leg lengths were clinically equal. The wound was thoroughly irrigated. The capsule, piriformis and iliotibial band were closed with #1 Vicryl. Subcutaneous tissue was closed with 3-0 Vicryl. The skin was closed with jaz. A sterile dressing was applied with Primapore. The patient was placed into a knee immobilizer. The patient was awakened and transferred to the recovery room in stable condition. Needle and sponge counts were correct. Kurt Thakkar MD Apr 29, 2017 10:35 <Electronically signed by Kurt Thakkar MD> 04/29/17 1035 Brief History - From Admission History from patient, ER physician communication, and review of medical records. Patient reported that he was in the garage helping his friend fix things and the friend had tripped and fell onto him. He stated that this may to fall face forward. He hit his head at the forehead. He thinks he also landed on the side. He denies taking any blood thinners apart from aspirin 81 mg at home. Patient states that the fall is quite severe that he thinks he did pass out. However denies any premonitory symptoms prior to this event. He states this was simply an accidental fall. In the emergency room, patient had repair of his right forehead laceration. On review of systems, patient denies any chest pain/palpitations/shortness of breath/syncopal episodes p previously. He stated that he only passed out this time because of the fall. Denies any recent fever/cough/nausea/vomiting/diarrhea/black stools or red stools/blood in his urine. Denies any urinary burning or pain on urination. CBC/BMP: 05/02/17 0825 05/01/17 0604 Significant Findings Laboratory Tests Test 04/30/17 04:10 05/01/17 06:04 05/01/17 11:41 05/02/17 08:25 Hemoglobin 9.9 GM/DL (13.0-17.0) 9.0 GM/DL (13.0-17.0) 8.2 GM/DL (13.0-17.0) Hematocrit 29.3 % (39.0-51.0) 26.1 % (39.0-51.0) 23.9 % (39.0-51.0) Blood Urea Nitrogen 27 MG/DL (7-18) 25 MG/DL (7-18) Creatinine 1.47 MG/DL (0.60-1.30) Random Glucose 199 MG/DL (74-106) 207 MG/DL (74-106) Calcium Level 7.8 MG/DL (8.5-10.1) 7.8 MG/DL (8.5-10.1) Estimat Glomerular Filtration Rate 46 ML/MIN (>89) 54 ML/MIN (>89) Red Blood Count 2.74 MIL/MM3 (4.50-5.90) Platelet Count 144 TH/MM3 (150-450) Neutrophils (%) (Auto) 79.6 % (16.0-70.0) Lymphocytes (%) (Auto) 8.5 % (9.0-44.0) Monocytes (%) (Auto) 11.5 % (0.0-8.0) Neutrophils # (Auto) 8.0 TH/MM3 (1.8-7.7) Lymphocytes # (Auto) 0.9 TH/MM3 (1.0-4.8) Monocytes # (Auto) 1.2 TH/MM3 (0-0.9) Troponin I LESS THAN 0.02 NG/ML Imaging Last Impressions Hip and Pelvis X-Ray 04/29/17 1030 Signed Impressions: Service Date/Time: Saturday, April 29, 2017 10:51 - CONCLUSION: Normal alignment postoperative right total hip arthroplasty. Luke Kennedy MD Chest X-Ray 04/29/17 0000 Signed Impressions: Service Date/Time: Saturday, April 29, 2017 04:49 - CONCLUSION: No acute disease. Luke Alonso Jr., MD Pelvis X-Ray 04/28/171913 Signed Impressions: Service Date/Time: Friday, April 28, 2017 19:29 - CONCLUSION: Intact pelvis. Right femur x-ray to follow. Alec Mazariegos MD Head CT 04/28/171913 Signed Impressions: Service Date/Time: Friday, April 28, 2017 19:43 - CONCLUSION: No bleed or other acute intracranial abnormality. Blood in the paranasal sinuses. Please see above. Alec Mazariegos MD Femur X-Ray 04/28/171913 Signed Impressions: Service Date/Time: Friday, April 28, 2017 19:30 - CONCLUSION: Acute subcapital fracture of the right femur with mild impaction. Alec Mazariegos MD PE at Discharge GENERAL: Awake alert oriented 3 talkative and cooperative in no acute distress SKIN: Warm and dry. HEAD: Atraumatic. Normocephalic. EYES: Pupils equal and round. No scleral icterus. No injection or drainage. Extraocular muscles intact wearing glasses ecchymosis around right eye orbit ENT: No nasal bleeding or discharge. Mucous membranes pink and moist. Tongue is midline NECK: Trachea midline. No JVD. Supple CARDIOVASCULAR: Regular rate and rhythm. S1-S2 no S3 or S4 RESPIRATORY: No accessory muscle use. Clear to auscultation. Breath sounds equal bilaterally. GASTROINTESTINAL: Abdomen soft, non-tender, nondistended. Hepatic and splenic margins not palpable. MUSCULOSKELETAL: Extremities without clubbing, cyanosis, or edema. No obvious deformities. NEUROLOGICAL: Awake and alert. No obvious cranial nerve deficits. Motor grossly within normal limits. 4 out of 5 muscle strength in the arms and legs. Normal speech. PSYCHIATRIC: Appropriate mood and affect; insight and judgment normal. Hospital Course History from patient, ER physician communication, and review of medical records. Patient reported that he was in the garage helping his friend fix things and the friend had tripped and fell onto him. He stated that this may to fall face forward. He hit his head at the forehead. He thinks he also landed on the side. He denies taking any blood thinners apart from aspirin 81 mg at home. Patient states that the fall is quite severe that he thinks he did pass out. However denies any premonitory symptoms prior to this event. He states this was simply an accidental fall. In the emergency room, patient had repair of his right forehead laceration. On review of systems, patient denies any chest pain/palpitations/shortness of breath/syncopal episodes p previously. He stated that he only passed out this time because of the fall. Denies any recent fever/cough/nausea/vomiting/diarrhea/black stools or red stools/blood in his urine. Denies any urinary burning or pain on urination. 3-16 Follow up on patient with right hip fracture, s/p bipolar hip replacement. Patient seen and examined. Patient complaining of 4-5/10 burning nonradicular midsternal chest pain with associated nausea. He has not been able to tolerate breakfast this morning or dinner last night. He denies any active vomiting. States he takes Zantac at home occasionally with good results. He reports feeling claustrophobic and is requesting something to help with anxiety. He denies any issues with anxiety at home. He denies any fever or chills. He reports mild headache. He denies any lightheadedness, dizziness or vision changes. He denies any difficulty with urination. He denies any BM since admission but is passing flatus. 3-17 WANTS TO GO TO SNF HAS SELECTED ONE WILL ADJUST HIS MEDICATIONS DW RN AD PT OK FOR SNF SEE 3008 RX WRITTEN This is a 81/M presenting with a fall Right acute subcapital neck fracture secondary to a fall - s/p surgery, orthopedics following, continue pain control. Continue PT. Per Ortho, WBAT, posterior hip precautions, knee brace on while in bed, daily dressing changes with Primapore and begin adding bacitracin on POD 10. Not tolerating diet secondary to nausea. Zofran prn. Chest pain, complaining of indigestion and anxiety - Maalox and Pepcid ordered. Low dose Xanax BID prn. Obtain troponin and EKG. Normocytic normochromic anemia, suspect secondary to acute blood loss secondary to surgery. Hemoglobin continues downward trend, now 9.0. Monitor for any bleeding. Continue to follow. H&H in am. Acute kidney disease suspect secondary to dehydration versus chronic kidney disease, unknown to patient: Continued on IV fluids. Creatinine trending downwards, now 1.29. Avoid nephrotoxic agents. Continue to monitor renal indices. Hemoptysis, resolved: Could be secondary to extubation versus NG tube placement. Continue to monitor. No recurrence. Hypertension, chronic: Continue lisinopril and metoprolol. Vasotec as needed. Continue to monitor BP trends. Diabetes mellitus, chronic: Accu-Chek before meals at bedtime, sliding scale, cover as needed. Hold oral hypoglycemic agents for now. Continue to hold until nausea improves and better able to tolerate diet. History of BPH: Continue on Flomax. Complaint of some urinary retention. Monitor intake and output. GERD CONTINUE H2 PARVIZ ANXIETY CONTINUE XANAX DVT prophylaxis: Lovenox with Xarelto at discharge DW RN AND PT AND CM Pt Condition on Discharge: Good Discharge Disposition: Discharge to SNF Discharge Time: > 30 minutes Discharge Instructions DIET: Follow Instructions for: Heart Healthy Diet, Diabetic Diet Speech Therapy-Diet Recommends: Regular Activities you can perform: Weight Bearing as Echo Other Activity Instructions: PT AND OT AT SNF Follow up Referrals: Occupational Therapy Orthopedics - 2 Weeks [facility] with Kurt Thakkar MD PCP Follow-up - 2 Weeks with [facility] New Medications: Calcium Carbonate-Vitamin D (Calcium 600+D 200) 600-200 Mg-Unit Tab 1 TAB PO BID for Nutritional Supplement, #90 TAB 0 Refills Ergocalciferol (Ergocalciferol) 50,000 Unit Cap 83701 UNITS PO Q7D for Nutritional Supplement, #8 CAP Ferrous Sulfate (Feosol) 325 Mg (65 Mg Iron) Tab 200 MG PO BIDPC for Nutritional Supplement, #60 TAB 0 Refills Hydrocodone-Acetaminophen (Hydrocodone-Acetaminophen) 7.5 Mg-325 Mg Tab 1 TAB PO Q4H PRN for PAIN, #60 TAB 0 Refills Rivaroxaban (Xarelto) 10 Mg Tab 10 MG PO DAILY for Blood Clot Prevention, #14 TAB 0 Refills Sennosides-Docusate Sodium (Senna-Plus) 8.6-50 Mg Tab 2 TAB PO BID for Constipation, #120 TAB 0 Refills Walker with Front Wheels (Walker with Front Wheels) 1 Mis Mis EA .XX DIRECTED, #1 0 Refills Alprazolam (Xanax) 0.25 Mg Tab 0.25 MG PO BID PRN for Anxiety, #60 TAB Famotidine (Famotidine) 20 Mg Tab 20 MG PO BID for Heartburn Management, #60 TAB Tamsulosin (Flomax) 0.4 Mg Cap 0.4 MG PO DAILY for Manage Prostate Problems, #30 CAP Continued Medications: Aspirin (Aspirin) 81 Mg Chew 81 MG CHEW DAILY, TAB 0 Refills Glyburide (Glyburide) 5 Mg Tab 10 MG PO BID for Blood Sugar Management, #120 TAB 0 Refills Take with meals at the same time each day Lisinopril (Lisinopril) 5 Mg Tab 5 MG PO DAILY for Blood Pressure Management, #30 TAB 0 Refills Metformin (Metformin) 1,000 Mg Tab 1000 MG PO BIDPC for Blood Sugar Management, #60 TAB 0 Refills Metoprolol Tartrate (Metoprolol Tartrate) 25 Mg Tab 25 MG PO BID, #60 TAB 0 Refills Pravastatin (Pravastatin) 40 Mg Tab 40 MG PO DAILY for Cholesterol Management, #30 TAB 0 Refills Abdifatah Puentes DO May 02, 2017 12:25
[2017-05-02] MEDS: MAGNESIUM HYDROXIDE SUSP 30 ML CUP PO PRN (14:22)
[2017-05-02 16:00] VITALS: BP 148/65; PULSE 93; RESP 17; TEMP 96; O2SAT 94
[2017-05-02] MEDS ORDERED: BISACODYL 10 MG SUPP RECTAL ONE (16:45)
--- NOTE | 2017-05-02 18:04 | EKG ---
Date Performed: 05/01/2017 Time Performed: 13:38:16 PTAGE: 81 years EKG: SINUS TACHYCARDIA INCOMPLETE RIGHT BUNDLE BRANCH BLOCK ABNORMAL RHYTHM ECG Since PREVIOUS TRACING , no significant change noted PREVIOUS TRACIN04/28/2017 19.53 DOCTOR: Jayce Cabrera Interpretating Date/Time 05/02/2017 18:02:08
[2017-05-02] MEDS ORDERED: FAMOTIDINE 20 MG TAB PO SCH (21:00)
== END 2017-05-02 18:48 | DRG 470 ==
LOC: NEPC 18:28 → NEDA 21:15 → N06B 23:45
PROVIDERS: ADMIT Hospitalist; ATTEND Hospitalist
PROC: 0HQ0XZZ Repair Scalp Skin, External Approach (ICD-10-PCS; principal; 2017-04-28)
PROC: 0T9B70Z Drainage of Bladder with Drainage Device, Via Natural or Artificial Opening (ICD-10-PCS; 2017-04-28)
PROC: 0SRR0JA Replacement of Right Hip Joint, Femoral Surface with Synthetic Substitute, Uncemented, Open Approach (ICD-10-PCS; 2017-04-29)
DX: S72.011A Unspecified intracapsular fracture of right femur, initial encounter for closed fracture (principal); N17.9 Acute kidney failure, unspecified; E11.65 Type 2 diabetes mellitus with hyperglycemia; R04.2 Hemoptysis; D62 Acute posthemorrhagic anemia; S01.01XA Laceration without foreign body of scalp, initial encounter; I10 Essential (primary) hypertension; S01.81XA Laceration without foreign body of other part of head, initial encounter; I25.10 Atherosclerotic heart disease of native coronary artery without angina pectoris; D72.829 Elevated white blood cell count, unspecified; E78.00 Pure hypercholesterolemia, unspecified; K21.9 Gastro-esophageal reflux disease without esophagitis; Z95.5 Presence of coronary angioplasty implant and graft; R33.9 Retention of urine, unspecified; N40.1 Benign prostatic hyperplasia with lower urinary tract symptoms; R33.8 Other retention of urine; M19.90 Unspecified osteoarthritis, unspecified site; F40.240 Claustrophobia; W11.XXXA Fall on and from ladder, initial encounter; Y92.008 Other place in unspecified non-institutional (private) residence as the place of occurrence of the external cause; Z79.84 Long term (current) use of oral hypoglycemic drugs; Z85.46 Personal history of malignant neoplasm of prostate; Z87.891 Personal history of nicotine dependence
CPT/HCPCS: 12011; 70450; 71045; 72170; 73501; 73552; 80048; 80053; 81001; 82306; 82948; 84484; 85014; 85018; 85025; 85610; 85730; 86850; 86900; 86901; 88305; 88311; 93005; 94150; 96374; 96375; C1776; J0131; J0690; J1100; J1170; J1650; J1815; J2270; J2370; J2405; J2710; J3010; J3370; J7030; J7120; L1830